=== PATIENT | female | born 1995 | race Caucasian/White ===

== ENCOUNTER → 2016-09-24 | Outpatient (CLI) | payer OTHER ==
[2016-09-27 17:32] LABS: IGA SERUM 300 mg/dL (81-463); TIS TRANS IGA 1 U/mL (<4)
== END | disposition home or self-care (01) ==
LOC: C.LAB1850 17:10
PROVIDERS: ATTEND Internal Medicine
DX: R10.9 Unspecified abdominal pain (principal)

== ENCOUNTER → 2016-12-13 | Outpatient (CLI) | payer OTHER | END | disposition home or self-care (01) | LOC: C.PAPS 15:24 | PROVIDERS: ATTEND Physician Assistant | DX: Z12.4 Encounter for screening for malignant neoplasm of cervix (principal) ==

== ENCOUNTER → 2016-12-18 | Outpatient (CLI) | payer OTHER ==
[2016-12-18 09:44] LABS: PREG INTERNAL NEGATIVE QC NEG CLEAR BACKGROUND; PREG INTERNAL POSITIVE QC POS CONTROL LINE
== END | disposition home or self-care (01) ==
LOC: C.LAB1850 08:03
PROVIDERS: ATTEND Physician Assistant
DX: Z32.00 Encounter for pregnancy test, result unknown (principal)

== ENCOUNTER → 2017-04-02 | Outpatient (CLI) | payer OTHER ==
[2017-04-02 17:36] LABS: BASO % 0.3 %; BASO ABS # 0.02 K/uL (0-0.2); COMPLETE YES; EOS % 0.9 %; HEMATOCRIT 39.8 % (37-47); IG% 0.1 %; LYMPH % 42.2 %; LYMPH ABS # 3.18 K/uL (1.2-3.4); MEAN CORPUSCULAR HGB CONC 32.2 g/dl (32-36); MEAN PLATELET VOLUME 9.7 fL (7.4-10.4); MONO % 5.3 %; NEUT % 51.2 %; PLATELET COUNT 277 K/uL (130-400); RED BLOOD COUNT 4.74 M/uL (4.2-5.4); WHITE BLOOD COUNT 7.53 K/uL (4.8-10.8)
== END | disposition home or self-care (01) ==
LOC: C.LAB1850 17:16
PROVIDERS: ATTEND Physician Assistant Medical
DX: N92.6 Irregular menstruation, unspecified (principal); R53.83 Other fatigue

== ENCOUNTER → 2017-05-10 | Outpatient (CLI) | payer OTHER ==
[2017-05-10 12:01] LABS: CHOLESTEROL/HDL RATIO 4.2
== END | disposition home or self-care (01) ==
LOC: C.LAB1850 09:36
PROVIDERS: ATTEND Physician Assistant
DX: Z00.00 Encounter for general adult medical examination without abnormal findings (principal)

== ENCOUNTER → 2017-08-22 | Outpatient (CLI) | payer OTHER | END | disposition home or self-care (01) | LOC: C.LAB1850 12:10 | PROVIDERS: ATTEND Obstetrics & Gynecology | DX: Z34.90 Encounter for supervision of normal pregnancy, unspecified, unspecified trimester (principal) ==

== ENCOUNTER → 2017-09-10 | Outpatient (CLI) | payer OTHER ==
[2017-09-10 13:10] LABS: BASO % 0.4 %; BASO ABS # 0.02 K/uL (0-0.2); EOS % 0.9 %; EOS ABS # 0.05 K/uL (0-0.5); HEMATOCRIT 39.5 % (37-47); HEMOGLOBIN 13.2 g/dL (12.0-16.0); IG# 0.01 K/uL (0.00-0.02); LYMPH % 37.1 %; LYMPH ABS # 2.06 K/uL (1.2-3.4); MEAN CELL VOLUME 83.9 fL (80-100); MEAN CORPUSCULAR HGB CONC 33.4 g/dl (32-36); MONO ABS # 0.39 K/uL (0.11-0.59); NEUT % 54.4 %; NEUT ABS # 3.02 K/uL (1.4-6.5); PLATELET COUNT 241 K/uL (130-400); WHITE BLOOD COUNT 5.55 K/uL (4.8-10.8)
[2017-09-10 13:29] LABS: BLOOD UREA NITROGEN 8 mg/dl (7-18); CARBON DIOXIDE 28 mmol/L (21-32); CREATININE 0.71 mg/dl (0.60-1.20); GLUCOSE 103 mg/dl (70-99); POTASSIUM 3.5 mmol/L (3.5-5.1); SODIUM 140 mmol/L (136-145)
== END | disposition home or self-care (01) ==
LOC: C.LABBC 09:43
PROVIDERS: ATTEND Physician Assistant
DX: R31.9 Hematuria, unspecified (principal)

== ENCOUNTER → 2017-09-10 | Outpatient (CLI) | payer OTHER ==
--- NOTE | 2017-09-10 10:12 | DIAGNOSTIC IMAGING REPORT ---
KUB CLINICAL HISTORY: Hematuria. FINDINGS: 2 AP supine abdominal radiographs are obtained. No prior studies are available for comparison at the time of dictation. There is a nonobstructed abdominal bowel gas pattern. No abnormal abdominal calcifications are identified. There is no radiographic evidence of mass effect or organomegaly. The bony structures appear intact. IMPRESSION: No acute abnormality is identified. Electronically signed by: Royce Benito M.D. 09/10/2017 10:11 AM Dictated Date/Time: 09/10/2017 10:10 AM
== END | disposition home or self-care (01) ==
LOC: C.RADBC 09:46
PROVIDERS: ATTEND Physician Assistant
DX: R31.9 Hematuria, unspecified (principal)

== ENCOUNTER → 2018-04-07 | Outpatient (CLI) | payer OTHER | END | disposition home or self-care (01) | LOC: C.LABBC 11:58 | PROVIDERS: ATTEND Family Medicine Adult Medicine | DX: R39.9 Unspecified symptoms and signs involving the genitourinary system (principal); N92.6 Irregular menstruation, unspecified ==

== ENCOUNTER 2024-07-24 14:54 | Inpatient (IN) ==
[2024-07-24 16:31] LABS: Hematocrit (blood only) 29.6 % (37.0-47.0); Hemoglobin 9.9 g/dl (12.0-16.0); Mean Corpuscular Hemoglobin 27.1 pg (25.0-34.0); Mean Corpuscular Hgb Conc 33.4 g/dL (32.0-36.0); Mean Corpuscular Volume 81.1 fL (80.0-100.0); Mean Platelet Volume 11.3 fL (9.4-12.4); Platelet Count 242 K/uL (130-400); RDW Coefficient of Variation 13.7 % (11.5-14.5); RDW Standard Deviation 40.1 fL (36.4-46.3); Red Blood Count 3.65 M/uL (4.20-5.40); White Blood Count 9.45 K/ul (4.8-10.8)
[2024-07-24] MEDS: ACETAMINOPHEN 500 MG TAB PO STA (16:34)
[2024-07-24] MEDS: METOCLOPRAMIDE HCL 10 MG TABLET PO ONE (16:34)
[2024-07-24 16:46] LABS: Albumin Level 3.2 gm/dl (3.4-5.0); BUN Creatinine Ratio 21.5 (10-20); Bilirubin,Total 0.3 mg/dl (0.2-1.0); Calcium 8.9 mg/dl (8.6-10.3); Creatinine Clr Calc Pharmacy 154.8 ml/min; Globulin 3.2 gm/dl (2.5-4.0); Potassium 4.3 mmol/L (3.5-5.1); Total Protein 6.4 gm/dl (6.0-8.3)
[2024-07-24] MEDS ORDERED: LIDOCAINE 1% LOCAL 20 ML VIAL INFIL PRN (18:08)
[2024-07-24] MEDS ORDERED: OXYTOCIN 30 UNITS/NSS 30 UNITS/500 ML BAG IV PRN (18:08)
--- NOTE | 2024-07-24 18:43 | History & Physical Report ---
Date of Service July 24, 2024 Assessment & Plan (1) Pre-eclampsia, severe: (2) Gestational diabetes mellitus (GDM) affecting , antepartum: Plan 29 yo G1 at 36 3/7 wga presented for evaluation and now dx w/ pre-eclampsia with severe features Normal to mild range BPs Fetus cat 1 PET w/ SF - discussed w/ pt and that given persistent CAMARGO despite adequate analgesic and was previously resolving w/ it, would dx w/ PET w/ SF. Would recommend induction given GA and they are in agreement. Discussed pcn given gbs pending, and magnesium. Discussed risks and benefits of betamethasone, she would like to proceed. Peds made aware as well. Vertex by US, will check cervix once moved over History of Present Illness Chief Complaint: CAMARGO, elevated BPs Primary Care Provider: Ander Begum, DO 29 yo G1 at 36 3/7 wga presented for eval due to CAMARGO in the setting of elevated BPs. Was seen yesterday for morris at which point mildly elevated BPs were noted but asymptomatic. Labs wre obtained which were normal however UP:C 1.0. diagnosed this afternoon w/ pre-eclampsia w/o SF after BP check today with persistent mild range BP. During visit, she noted return of CAMARGO so sent to L&D for further eval. On L&D, BPs remain mild range, labs were wnl. Has had HAs on and off and last few weeks but they would always resolve with tylenol. She was given tylenol and reglan on L&D however persisted. 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 hx: G1 cycles q35d denies hx stis Allergies Allergy/AdvReac Type Severity Reaction Status Date / Time No Known Drug Allergies Allergy Verified 07/24/24 13:22 Home Medications Medication Instructions Recorded Confirmed Type acetone (urine) test (Ketone Urine #50 ea 03/26/24 07/24/24 Rx Test strips) blood sugar diagnostic (OneTouch #150 ea 03/26/24 07/24/24 Rx Verio test strips) blood-glucose meter (OneTouch #1 ea 03/26/24 07/24/24 Rx Verio Reflect Meter) lancets 33 gauge (OneTouch Delica #150 ea 03/26/24 07/24/24 Rx Plus Lancet) vits no.124-ferrous fum 1 tab PO DAILY 07/24/24 07/24/24 History 27 mg iron-folic acid 800 mcg tablet ( Vitamin) Patient History Medical History (Updated 07/24/24 @ 18:54 by Marina Perdomo MD) Allergic contact dermatitis Chronic rhinitis Migraine Secondary amenorrhea TMJ (temporomandibular joint disorder) Surgical History (Updated 07/24/24 @ 16:40 by Meeta Peters RN) History of adenoidectomy 07/2023 History of tonsillectomy 2010 History of tooth extraction wisdom teeth 2010 Family History Father Stroke Dyslipidemia Hypertension Mother Diabetes Dyslipidemia Kidney stones Grandmother (Maternal) Diabetes Family/Other Uterine cancer Grandfather (Maternal) Lung cancer Grandmother (Paternal) Ovarian cancer Denies family history of Prostate cancer Myocardial infarction Breast cancer Colorectal cancer Social History (Updated 07/24/24 @ 16:48 by Meeta Peters RN) Smoking Status: Never smoker Second Hand Exposure: No; Do You Dip or Chew Tobacco: No; Hx Alcohol Use: No Hx Substance Use: No Preferred Language: Belgian Communication Ability: Effective Visual Impairment: No Limitations Hearing Ability: Normal Stummel Selector Required: No Beliefs That Will Affect Care: None marital status: marital status details: Sebas Concepcion (45) [phone] Current Living Situation: Spouse and Family Current Living Situation Comment: Step-son 11 years old current occupational status: employed 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 How many Children do You have: 0 Other Information That Helps Us Care for You: No Feels Safe at Home: Yes Safety Concerns: Feels Safe At This Time Childhood Exposure to Second-Hand Smoke: Yes caffeine: Yes Dental Care, Regularly: Yes Seatbelt Use: always Sunscreen Use: Yes Physical Exam Genitourinary: OB Exam Abdomen: + vertex (confirmed by us) and + estimated weight (6-7) OB Exam Monitor Tracing: + external FHT monitor used, + external uterine monitor used and + category I Results & Data Vital Signs (Past 12 Hours) Vital Signs Temp Pulse Resp BP 07/24/24 18:34 68 07/24/24 18:34 137/88 07/24/24 16:56 66 07/24/24 16:56 140/81 07/24/24 16:26 74 07/24/24 16:26 145/88 H 07/24/24 16:11 65 07/24/24 16:11 144/87 H 07/24/24 15:56 73 07/24/24 15:56 169/90 H 07/24/24 15:42 71 148/87 H 07/24/24 15:26 75 137/85 07/24/24 15:10 98.2 F 73 18 132/88 Laboratory Results OB Labs: Blood Type A Positive 01/02/24 Antibody Screen NEGATIVE 01/02/24 Hgb 10.8 g/dl (12.0-16.0) L 07/23/24 Hct 32.8 % (37.0-47.0) L 07/23/24 MCV 82.2 fL (80.0-100.0) 07/23/24 Plt Count 277 K/uL (130-400) 07/23/24 Rubella IgG Antibody Equivocal (Immune) L 01/02/24 RPR Nonreactive (Nonreactive) 01/02/24 Treponema pallidum Ab Negative (Negative) 07/09/24 Hep Bs Antigen NON-REACTIVE (NON-REACTIVE) 01/02/24 Hepatitis C Ab (EIA) NON-REACTIVE (NON-REACTIVE) 01/02/24 HIV (1&2) Ag & Ab Conf NON-REACTIVE (NON-REACTIVE) 01/02/24 Glucose 1 Hr 50 gm 175 mg/dl (70-130) H 03/03/24 Maternal Serum AFP 17.9 ng/mL 03/03/24 OB Optional Labs: Chlamydia trachomatis RNA Not Detected (NotDetected) 01/02/24 Neisseria gonorrhoeae RNA Not Detected (NotDetected) 01/02/24 Thyroid Stimulating Hormone (TSH) 1.739 uIu/ml (0.300-4.500) 02/12/23 Alpha Fetoprotein Triple Screen SEE NOTE 03/03/24 Labs Reviewed: Declines carrier screening--mln cfdna-low risk--mln Diagnostic Findings 07/09 EFW 2354g 39%, AC 60%, ant plac Coding Level of Care Code None Diagnoses Pre-eclampsia, severe O14.10 Gestational diabetes mellitus (GDM) affecting , antepartum O24.419
[2024-07-24] MEDS ORDERED: SODIUM CHLORIDE 0.9% 100 ML IV PRN (18:56)
[2024-07-24] MEDS ORDERED: SODIUM CHLORIDE 0.9% 50 ML IV PRN (18:56)
[2024-07-24] MEDS ORDERED: Nursing to Pharmacy Communication SCH (19:45)
[2024-07-24] MEDS: BETAMETH SOD PHOS/ACETATE IA 6 MG/ML IM SCH (19:50)
[2024-07-24] MEDS: MAGNESIUM SULFATE / WTR 40 GM/1,000 ML BAG IV SCH (20:01)
[2024-07-24] MEDS: PENICILLIN GK 6 MU in DEXTROSE 5% 250 ML IV STA (20:09)
[2024-07-24] MEDS: miSOPROStoL 25 MCG TAB PV ONE (20:17)
--- NOTE | 2024-07-24 20:23 | Labor Progress Brief Note ---
Date of Service July 24, 2024 Subjective resting Assessment & Plan (1) Pre-eclampsia, severe: (2) Gestational diabetes mellitus (GDM) affecting , antepartum: Plan 29 yo G1 at 36 3/7 wga presented for evaluation and now dx w/ pre-eclampsia with severe features Normal to mild range BPs Fetus cat 1 PET w/ SF - on mag, scruggs in place. s/p bmz x 1 Labor - 25mcg cytotec placed PV GBS unk, pcn started epidural prn Admission and Anticipated Discharge Date Admission Date: July 24, 2024 Physical Exam Genitourinary: OB Exam Monitor Tracing: + external FHT monitor used, + external uterine monitor used (rare) and + category I SVE c/l/h Results & Data Vital Signs (Past 12 Hours) Vital Signs Temp Pulse Resp BP Pulse Ox 07/24/24 20:15 99 07/24/24 20:15 84 07/24/24 20:10 100 07/24/24 20:10 87 07/24/24 20:05 99 07/24/24 20:05 77 07/24/24 20:04 72 07/24/24 20:04 142/95 H 07/24/24 18:34 20 07/24/24 18:34 98.2 F 20 07/24/24 18:34 68 07/24/24 18:34 137/88 07/24/24 16:56 66 07/24/24 16:56 140/81 07/24/24 16:26 74 07/24/24 16:26 145/88 H 07/24/24 16:11 65 07/24/24 16:11 144/87 H 07/24/24 15:56 73 07/24/24 15:56 169/90 H 07/24/24 15:42 71 148/87 H 07/24/24 15:26 75 137/85 07/24/24 15:10 98.2 F 73 18 132/88 Coding Level of Care Code None Diagnoses Pre-eclampsia, severe O14.10 Gestational diabetes mellitus (GDM) affecting , antepartum O24.419
[2024-07-24] MEDS: LACTATED RINGER'S 1,000 ML IV SCH (21:00)
[2024-07-25] MEDS: PENICILLIN GK 3 MU in DEXTROSE 5% 100 ML IV PRN (00:04)
--- NOTE | 2024-07-25 00:26 | Labor Progress Brief Note ---
Date of Service July 25, 2024 Subjective occ cramps Assessment & Plan (1) Pre-eclampsia, severe: (2) Gestational diabetes mellitus (GDM) affecting , antepartum: Plan 29 yo G1 at 36 3/7 wga presented for evaluation and now dx w/ pre-eclampsia with severe features Normal to mild range BPs Fetus cat 1 PET w/ SF - on mag, scruggs in place. s/p bmz x 1 Labor - s/p cytotec x 1, softer but still not able to insert scruggs so will place another cytotec GBS unk, pcn started epidural prn Admission and Anticipated Discharge Date Admission Date: July 24, 2024 Physical Exam Genitourinary: Manual OB Exam: + cervical dilation fingertip, + cervical effacement 50% and + station -2 OB Exam Monitor Tracing: + external FHT monitor used, + external uterine monitor used (rare) and + category I (125/mod/+accel/-decel) Results & Data Vital Signs (Past 12 Hours) Vital Signs Temp Pulse Resp BP Pulse Ox O2 Del Method 07/25/24 00:20 79 100 07/25/24 00:15 69 98 07/25/24 00:10 68 99 07/25/24 00:07 73 131/75 07/25/24 00:05 68 99 07/25/24 00:00 16 07/25/24 00:00 64 100 07/24/24 23:55 99 07/24/24 23:55 64 07/24/24 23:50 98 07/24/24 23:50 70 07/24/24 23:45 99 07/24/24 23:45 69 07/24/24 23:40 98 07/24/24 23:40 63 07/24/24 23:37 60 07/24/24 23:37 128/75 07/24/24 23:35 98 07/24/24 23:35 65 07/24/24 23:30 99 07/24/24 23:30 72 07/24/24 23:25 99 07/24/24 23:25 68 07/24/24 23:20 99 07/24/24 23:20 68 07/24/24 23:15 99 07/24/24 23:15 61 07/24/24 23:10 16 07/24/24 23:10 97.9 F 16 07/24/24 23:10 99 07/24/24 23:10 65 07/24/24 23:09 59 L 07/24/24 23:09 131/63 07/24/24 23:05 99 07/24/24 23:05 67 07/24/24 23:00 16 07/24/24 23:00 98 07/24/24 23:00 64 07/24/24 22:55 99 07/24/24 22:55 69 07/24/24 22:50 100 07/24/24 22:50 73 07/24/24 22:45 98 07/24/24 22:45 64 07/24/24 22:40 98 07/24/24 22:40 62 07/24/24 22:37 62 07/24/24 22:37 116/57 L 07/24/24 22:35 100 07/24/24 22:35 76 07/24/24 22:30 99 07/24/24 22:30 72 07/24/24 22:25 99 07/24/24 22:25 65 07/24/24 22:20 99 07/24/24 22:20 68 07/24/24 22:15 98 07/24/24 22:15 65 07/24/24 22:10 100 07/24/24 22:10 69 07/24/24 22:07 62 07/24/24 22:07 128/65 07/24/24 22:05 99 07/24/24 22:05 74 07/24/24 22:00 16 07/24/24 22:00 99 07/24/24 22:00 65 07/24/24 21:55 99 07/24/24 21:55 65 07/24/24 21:50 98 07/24/24 21:50 63 07/24/24 21:45 98 07/24/24 21:45 65 07/24/24 21:40 99 07/24/24 21:40 63 07/24/24 21:36 68 07/24/24 21:36 131/67 07/24/24 21:35 99 07/24/24 21:35 78 07/24/24 21:30 100 07/24/24 21:30 61 07/24/24 21:25 99 07/24/24 21:25 69 07/24/24 21:21 64 11/08/24 21:21 144/95 H 07/24/24 21:20 98 07/24/24 21:20 66 07/24/24 21:15 100 07/24/24 21:15 64 07/24/24 21:10 100 07/24/24 21:10 62 07/24/24 21:05 99 07/24/24 21:05 68 07/24/24 21:05 156/95 H 07/24/24 21:00 18 07/24/24 21:00 100 07/24/24 21:00 68 07/24/24 20:55 100 07/24/24 20:55 71 07/24/24 20:51 69 07/24/24 20:51 155/99 H 07/24/24 20:50 100 07/24/24 20:50 73 07/24/24 20:45 100 07/24/24 20:45 76 07/24/24 20:40 100 07/24/24 20:40 74 07/24/24 20:36 79 07/24/24 20:36 170/95 H 07/24/24 20:35 98 07/24/24 20:35 81 07/24/24 20:30 98 07/24/24 20:30 82 07/24/24 20:25 99 07/24/24 20:25 82 07/24/24 20:21 73 07/24/24 20:21 162/85 H 07/24/24 20:20 99 07/24/24 20:20 90 07/24/24 20:15 99 07/24/24 20:15 84 07/24/24 20:10 18 07/24/24 20:10 98.2 F 18 07/24/24 20:10 100 07/24/24 20:10 87 07/24/24 20:05 99 07/24/24 20:05 77 07/24/24 20:04 72 07/24/24 20:04 142/95 H 07/24/24 20:00 18 07/24/24 20:00 Room Air 07/24/24 18:34 20 07/24/24 18:34 98.2 F 20 07/24/24 18:34 68 07/24/24 18:34 137/88 07/24/24 16:56 66 07/24/24 16:56 140/81 07/24/24 16:26 74 07/24/24 16:26 145/88 H 07/24/24 16:11 65 07/24/24 16:11 144/87 H 07/24/24 15:56 73 07/24/24 15:56 169/90 H 07/24/24 15:42 71 148/87 H 07/24/24 15:26 75 137/85 07/24/24 15:10 98.2 F 73 18 132/88 Coding Level of Care Code None Diagnoses Pre-eclampsia, severe O14.10 Gestational diabetes mellitus (GDM) affecting , antepartum O24.419
[2024-07-25] MEDS: miSOPROStoL 25 MCG TAB PV ONE ×2 (00:46→07:26)
[2024-07-25] MEDS: ACETAMINOPHEN 500 MG TAB PO PRN (05:56)
[2024-07-25] MEDS: MAG SULFATE 4GM BOLUS FROM BAG IV ONE (07:11)
--- NOTE | 2024-07-25 08:12 | Labor Progress Brief Note ---
Date of Service July 25, 2024 Subjective occ cramps Assessment & Plan (1) Pre-eclampsia, severe: (2) Gestational diabetes mellitus (GDM) affecting , antepartum: Plan 29 yo G1 at 36 3/7 wga presented for evaluation and now dx w/ pre-eclampsia with severe features Normal to mild range BPs Fetus cat 1 PET w/ SF - on mag, scruggs in place. s/p bmz x 1 Labor - s/p cytotec x 2, softer but still not dilated so will place another cytotec GBS unk, pcn started epidural prn Admission and Anticipated Discharge Date Admission Date: July 24, 2024 Physical Exam Genitourinary: Manual OB Exam: + cervical dilation fingertip, + cervical effacement 50% and + station -2 OB Exam Monitor Tracing: + external FHT monitor used, + external uterine monitor used (irreg) and + category I (125/mod/+accel/-decel) Results & Data Vital Signs (Past 12 Hours) Vital Signs Temp Pulse Resp BP Pulse Ox 07/25/24 08:10 78 98 07/25/24 08:07 86 158/86 H 94 07/25/24 08:05 83 98 07/25/24 08:00 80 99 07/25/24 07:55 80 98 07/25/24 07:50 81 98 07/25/24 07:45 82 97 07/25/24 07:40 80 99 07/25/24 07:37 77 141/80 H 07/25/24 07:35 81 96 07/25/24 07:30 74 99 07/25/24 07:25 81 100 07/25/24 07:20 80 98 07/25/24 07:19 93 H 93 07/25/24 07:17 18 07/25/24 07:15 80 99 07/25/24 07:10 82 98 07/25/24 07:07 97.9 F 72 18 136/76 98 07/25/24 07:05 80 97 07/25/24 07:00 71 97 07/25/24 06:55 76 99 07/25/24 06:50 71 98 07/25/24 06:45 81 98 07/25/24 06:40 71 99 07/25/24 06:35 68 99 07/25/24 06:30 82 99 07/25/24 06:25 75 96 07/25/24 06:20 72 98 07/25/24 06:15 77 98 07/25/24 06:11 70 144/83 H 07/25/24 06:10 70 99 07/25/24 06:05 77 97 07/25/24 06:01 16 07/25/24 06:01 98.1 F 16 07/25/24 06:00 16 07/25/24 06:00 77 99 07/25/24 05:55 73 99 07/25/24 05:50 68 98 07/25/24 05:45 71 98 07/25/24 05:40 79 98 07/25/24 05:37 64 134/77 07/25/24 05:35 80 98 07/25/24 05:30 66 99 07/25/24 05:25 72 98 07/25/24 05:20 69 99 07/25/24 05:15 73 99 07/25/24 05:10 70 99 07/25/24 05:07 67 133/67 07/25/24 05:05 70 98 07/25/24 05:00 16 07/25/24 05:00 75 97 07/25/24 04:55 73 97 07/25/24 04:50 65 98 07/25/24 04:45 70 99 07/25/24 04:40 68 98 07/25/24 04:37 72 131/74 07/25/24 04:35 70 99 07/25/24 04:30 68 98 07/25/24 04:25 69 98 07/25/24 04:20 66 98 07/25/24 04:15 65 98 07/25/24 04:10 68 99 07/25/24 04:07 67 137/79 07/25/24 04:05 67 99 07/25/24 04:00 16 07/25/24 04:00 64 99 07/25/24 03:55 67 99 07/25/24 03:50 63 99 07/25/24 03:45 65 99 07/25/24 03:40 65 99 07/25/24 03:37 63 132/73 07/25/24 03:35 65 98 07/25/24 03:30 73 100 07/25/24 03:25 61 98 07/25/24 03:20 66 99 07/25/24 03:15 66 100 07/25/24 03:10 63 98 07/25/24 03:07 65 119/63 07/25/24 03:05 66 99 07/25/24 03:00 16 07/25/24 03:00 65 99 07/25/24 02:56 98.2 F 07/25/24 02:55 73 100 07/25/24 02:50 72 98 07/25/24 02:45 70 100 07/25/24 02:40 71 98 07/25/24 02:37 70 136/74 07/25/24 02:35 69 99 07/25/24 02:30 70 99 07/25/24 02:25 74 99 07/25/24 02:20 78 97 07/25/24 02:15 76 96 07/25/24 02:10 83 97 07/25/24 02:07 79 144/66 H 07/25/24 02:05 80 96 07/25/24 02:00 16 07/25/24 02:00 78 97 07/25/24 01:55 78 97 07/25/24 01:50 76 97 07/25/24 01:45 81 97 07/25/24 01:40 76 97 07/25/24 01:37 74 136/64 07/25/24 01:35 77 97 07/25/24 01:30 73 98 07/25/24 01:25 70 98 07/25/24 01:20 68 99 07/25/24 01:15 74 98 07/25/24 01:10 71 98 07/25/24 01:07 71 124/65 07/25/24 01:05 78 98 07/25/24 01:00 16 07/25/24 01:00 74 98 07/25/24 00:55 71 98 07/25/24 00:50 78 98 07/25/24 00:45 87 100 07/25/24 00:40 72 99 07/25/24 00:37 67 140/88 07/25/24 00:35 71 98 07/25/24 00:30 68 99 07/25/24 00:25 65 98 07/25/24 00:20 79 100 07/25/24 00:15 69 98 07/25/24 00:10 68 99 07/25/24 00:07 73 131/75 07/25/24 00:05 68 99 07/25/24 00:00 16 07/25/24 00:00 64 100 07/24/24 23:55 99 07/24/24 23:55 64 07/24/24 23:50 98 07/24/24 23:50 70 07/24/24 23:45 99 07/24/24 23:45 69 07/24/24 23:40 98 07/24/24 23:40 63 07/24/24 23:37 60 07/24/24 23:37 128/75 07/24/24 23:35 98 07/24/24 23:35 65 07/24/24 23:30 99 07/24/24 23:30 72 07/24/24 23:25 99 07/24/24 23:25 68 07/24/24 23:20 99 07/24/24 23:20 68 07/24/24 23:15 99 07/24/24 23:15 61 07/24/24 23:10 16 07/24/24 23:10 97.9 F 16 07/24/24 23:10 99 07/24/24 23:10 65 07/24/24 23:09 59 L 07/24/24 23:09 131/63 07/24/24 23:05 99 07/24/24 23:05 67 07/24/24 23:00 16 07/24/24 23:00 98 07/24/24 23:00 64 07/24/24 22:55 99 07/24/24 22:55 69 07/24/24 22:50 100 07/24/24 22:50 73 07/24/24 22:45 98 07/24/24 22:45 64 07/24/24 22:40 98 07/24/24 22:40 62 07/24/24 22:37 62 07/24/24 22:37 116/57 L 07/24/24 22:35 100 07/24/24 22:35 76 07/24/24 22:30 99 07/24/24 22:30 72 07/24/24 22:25 99 07/24/24 22:25 65 07/24/24 22:20 99 07/24/24 22:20 68 07/24/24 22:15 98 07/24/24 22:15 65 07/24/24 22:10 100 07/24/24 22:10 69 07/24/24 22:07 62 07/24/24 22:07 128/65 07/24/24 22:05 99 07/24/24 22:05 74 07/24/24 22:00 16 07/24/24 22:00 99 07/24/24 22:00 65 07/24/24 21:55 99 07/24/24 21:55 65 07/24/24 21:50 98 07/24/24 21:50 63 07/24/24 21:45 98 07/24/24 21:45 65 07/24/24 21:40 99 07/24/24 21:40 63 07/24/24 21:36 68 07/24/24 21:36 131/67 07/24/24 21:35 99 07/24/24 21:35 78 07/24/24 21:30 100 07/24/24 21:30 61 07/24/24 21:25 99 07/24/24 21:25 69 07/24/24 21:21 64 07/24/24 21:21 144/95 H 07/24/24 21:20 98 07/24/24 21:20 66 07/24/24 21:15 100 07/24/24 21:15 64 07/24/24 21:10 100 07/24/24 21:10 62 07/24/24 21:05 99 07/24/24 21:05 68 07/24/24 21:05 156/95 H 07/24/24 21:00 18 07/24/24 21:00 100 07/24/24 21:00 68 07/24/24 20:55 100 07/24/24 20:55 71 07/24/24 20:51 69 07/24/24 20:51 155/99 H 07/24/24 20:50 100 07/24/24 20:50 73 07/24/24 20:45 100 07/24/24 20:45 76 07/24/24 20:40 100 07/24/24 20:40 74 07/24/24 20:36 79 07/24/24 20:36 170/95 H 07/24/24 20:35 98 07/24/24 20:35 81 07/24/24 20:30 98 07/24/24 20:30 82 07/24/24 20:25 99 07/24/24 20:25 82 07/24/24 20:21 73 07/24/24 20:21 162/85 H 07/24/24 20:20 99 07/24/24 20:20 90 07/24/24 20:15 99 07/24/24 20:15 84 Coding Level of Care Code None Diagnoses Pre-eclampsia, severe O14.10 Gestational diabetes mellitus (GDM) affecting , antepartum O24.419
--- NOTE | 2024-07-25 12:05 | Labor Progress Brief Note ---
Date of Service July 25, 2024 Subjective some cramps. no gonzalez. no other concerns. Assessment & Plan (1) Pre-eclampsia, severe: (2) Gestational diabetes mellitus (GDM) affecting , antepartum: (3) 36 weeks gestation of : Plan no evidence of worsening disease. will start pitocin, scruggs placed. good urine output. Admission and Anticipated Discharge Date Admission Date: July 24, 2024 Physical Exam Constitutional: WD/WN, vitals as above Genitourinary: Manual OB Exam: + cervical dilation 1 cm, + cervical effacement 50% and + station -2 OB Exam Monitor Tracing: + external FHT monitor used, + external uterine monitor used (irreg), + category I and + normal FHT variability PROCEDURE: sse cx visualized, grasped on ant lip with ring forcep, scruggs through os and balloon inflated with 40cc sterile water. Spec removed, scruggs taped to leg. pt clay well. Results & Data Vital Signs (Past 12 Hours) Vital Signs Temp Pulse Resp BP Pulse Ox 07/25/24 12:00 86 99 07/25/24 11:55 107 H 100 07/25/24 11:50 94 H 100 07/25/24 11:45 82 100 07/25/24 11:40 102 H 100 07/25/24 11:39 90 155/83 H 07/25/24 11:35 70 99 07/25/24 11:30 70 100 07/25/24 11:25 86 100 07/25/24 11:20 72 100 07/25/24 11:15 76 100 07/25/24 11:10 76 100 07/25/24 11:07 70 132/70 07/25/24 11:05 75 100 07/25/24 11:00 72 100 07/25/24 10:55 77 100 07/25/24 10:50 83 96 07/25/24 10:48 78 144/71 H 90 07/25/24 10:45 100 07/25/24 10:45 83 07/25/24 10:45 83 157/89 H 07/25/24 10:40 88 99 07/25/24 10:38 83 170/87 H 07/25/24 10:36 16 07/25/24 10:35 82 18 98 07/25/24 10:30 80 97 07/25/24 10:25 82 96 11/09/24 10:20 79 97 07/25/24 10:15 82 98 07/25/24 10:10 82 100 07/25/24 10:07 81 156/85 H 07/25/24 10:05 81 97 07/25/24 10:00 88 99 07/25/24 09:55 81 96 07/25/24 09:50 79 97 07/25/24 09:45 77 98 07/25/24 09:40 75 97 07/25/24 09:37 80 128/79 07/25/24 09:35 77 97 07/25/24 09:30 77 97 07/25/24 09:25 75 98 07/25/24 09:20 80 99 07/25/24 09:15 18 07/25/24 09:15 75 98 07/25/24 09:12 78 92 07/25/24 09:10 80 97 07/25/24 09:08 75 139/83 07/25/24 09:05 84 98 07/25/24 09:00 80 98 07/25/24 08:56 84 94 07/25/24 08:55 82 98 07/25/24 08:50 83 99 07/25/24 08:45 84 97 07/25/24 08:40 89 98 07/25/24 08:37 93 H 147/94 H 07/25/24 08:35 96 H 97 07/25/24 08:30 18 07/25/24 08:30 86 98 07/25/24 08:27 83 93 07/25/24 08:25 86 98 07/25/24 08:20 79 98 07/25/24 08:15 74 99 07/25/24 08:10 78 98 07/25/24 08:07 86 158/86 H 94 07/25/24 08:05 83 98 07/25/24 08:00 80 99 07/25/24 07:55 80 98 07/25/24 07:50 81 98 07/25/24 07:45 82 97 07/25/24 07:40 80 99 07/25/24 07:37 77 141/80 H 07/25/24 07:35 81 96 07/25/24 07:30 74 99 07/25/24 07:25 81 100 07/25/24 07:20 80 98 07/25/24 07:19 93 H 93 07/25/24 07:17 18 07/25/24 07:15 80 99 07/25/24 07:10 82 98 07/25/24 07:07 97.9 F 72 18 136/76 98 07/25/24 07:05 80 97 07/25/24 07:00 71 97 07/25/24 06:55 76 99 07/25/24 06:50 71 98 07/25/24 06:45 81 98 07/25/24 06:40 71 99 07/25/24 06:35 68 99 07/25/24 06:30 82 99 07/25/24 06:25 75 96 07/25/24 06:20 72 98 07/25/24 06:15 77 98 07/25/24 06:11 70 144/83 H 07/25/24 06:10 70 99 07/25/24 06:05 77 97 07/25/24 06:01 16 07/25/24 06:01 98.1 F 16 07/25/24 06:00 16 07/25/24 06:00 77 99 07/25/24 05:55 73 99 07/25/24 05:50 68 98 07/25/24 05:45 71 98 07/25/24 05:40 79 98 07/25/24 05:37 64 134/77 07/25/24 05:35 80 98 07/25/24 05:30 66 99 07/25/24 05:25 72 98 07/25/24 05:20 69 99 07/25/24 05:15 73 99 07/25/24 05:10 70 99 07/25/24 05:07 67 133/67 07/25/24 05:05 70 98 07/25/24 05:00 16 07/25/24 05:00 75 97 07/25/24 04:55 73 97 07/25/24 04:50 65 98 07/25/24 04:45 70 99 07/25/24 04:40 68 98 07/25/24 04:37 72 131/74 07/25/24 04:35 70 99 07/25/24 04:30 68 98 07/25/24 04:25 69 98 07/25/24 04:20 66 98 07/25/24 04:15 65 98 07/25/24 04:10 68 99 07/25/24 04:07 67 137/79 07/25/24 04:05 67 99 07/25/24 04:00 16 07/25/24 04:00 64 99 07/25/24 03:55 67 99 07/25/24 03:50 63 99 07/25/24 03:45 65 99 07/25/24 03:40 65 99 07/25/24 03:37 63 132/73 07/25/24 03:35 65 98 07/25/24 03:30 73 100 07/25/24 03:25 61 98 07/25/24 03:20 66 99 07/25/24 03:15 66 100 07/25/24 03:10 63 98 07/25/24 03:07 65 119/63 07/25/24 03:05 66 99 07/25/24 03:00 16 07/25/24 03:00 65 99 07/25/24 02:56 98.2 F 07/25/24 02:55 73 100 07/25/24 02:50 72 98 07/25/24 02:45 70 100 07/25/24 02:40 71 98 07/25/24 02:37 70 136/74 07/25/24 02:35 69 99 07/25/24 02:30 70 99 07/25/24 02:25 74 99 07/25/24 02:20 78 97 07/25/24 02:15 76 96 07/25/24 02:10 83 97 07/25/24 02:07 79 144/66 H 07/25/24 02:05 80 96 07/25/24 02:00 16 07/25/24 02:00 78 97 07/25/24 01:55 78 97 07/25/24 01:50 76 97 07/25/24 01:45 81 97 07/25/24 01:40 76 97 07/25/24 01:37 74 136/64 07/25/24 01:35 77 97 07/25/24 01:30 73 98 07/25/24 01:25 70 98 07/25/24 01:20 68 99 07/25/24 01:15 74 98 07/25/24 01:10 71 98 07/25/24 01:07 71 124/65 07/25/24 01:05 78 98 07/25/24 01:00 16 07/25/24 01:00 74 98 07/25/24 00:55 71 98 07/25/24 00:50 78 98 07/25/24 00:45 87 100 07/25/24 00:40 72 99 07/25/24 00:37 67 140/88 07/25/24 00:35 71 98 07/25/24 00:30 68 99 07/25/24 00:25 65 98 07/25/24 00:20 79 100 07/25/24 00:15 69 98 07/25/24 00:10 68 99 07/25/24 00:07 73 131/75 07/25/24 00:05 68 99 Coding Level of Care Code None Diagnoses Pre-eclampsia, severe O14.10 Gestational diabetes mellitus (GDM) affecting , antepartum O24.419 36 weeks gestation of Z3A.36
[2024-07-25] MEDS: OXYTOCIN 30 UNITS/NSS 30 UNITS/500 ML BAG IV PRN (12:13)
[2024-07-25] MEDS: ONDANSETRON INJ 2 MG/ML 2 ML VIAL IV PRN (13:36)
[2024-07-25] MEDS ORDERED: ROPIVACAINE 0.5% PF 5 MG/ML 20 ML VIAL EPI PRN (14:09)
[2024-07-25] MEDS ORDERED: BUPIVACAINE 0.25% PF 30 ML VIAL EPI PRN (14:09)
[2024-07-25] MEDS ORDERED: diphenhydrAMINE 50 MG/ML VIAL IV PRN (14:09)
[2024-07-25] MEDS ORDERED: ePHEDrine sulfate 50 MG/ML AMP IV PRN (14:09)
[2024-07-25] MEDS ORDERED: LIDOCAINE 2% MPF LOCAL 5 ML VIAL EPI PRN (14:09)
[2024-07-25] MEDS ORDERED: NALBUPHINE HCL INJ 10 MG/ML AMP IV PRN (14:09)
[2024-07-25] MEDS ORDERED: NALOXONE HCL 0.4 MG/1 ML VIAL/CARP IV PRN (14:09)
[2024-07-25] MEDS ORDERED: NALOXONE HCL 1 MG in SODIUM CHLORIDE 0.9% 1,000 ML IV PRN (14:09)
[2024-07-25] MEDS ORDERED: fentaNYL citrate PF 100 MCG/2 ML VIAL EPI PRN (14:09)
[2024-07-25] MEDS ORDERED: SODIUM CHLORIDE 0.9% PF INJ 10 ML VIAL EPI PRN (14:09)
--- NOTE | 2024-07-25 14:11 | Anesthesiology Consultation ---
Date of Service July 25, 2024 Assessment & Plan Chart Review Chart Review: Acceptable Risk for Labor Epidural Consults Requested medical & cardiac Pulmonary ASA ASA3 Proposed Anesthesia Anesthesia Type: Labor Epidural History Height/Weight Height: 5 ft 4 in Weight: 113.398 kg Allergies Allergy/AdvReac Type Severity Reaction Status Date / Time No Known Drug Allergies Allergy Verified 07/24/24 13:22 Medications Home Medications Medication Instructions Recorded Confirmed Last Taken acetone (urine) test (Ketone Urine #50 ea 03/26/24 07/24/24 Unknown Test strips) blood sugar diagnostic (OneTouch #150 ea 03/26/24 07/24/24 Unknown Verio test strips) blood-glucose meter (OneTouch #1 ea 03/26/24 07/24/24 Unknown Verio Reflect Meter) lancets 33 gauge (OneTouch Delica #150 ea 03/26/24 07/24/24 Unknown Plus Lancet) vits no.124-ferrous fum 1 tab PO DAILY 07/24/24 07/24/24 Unknown 27 mg iron-folic acid 800 mcg tablet ( Vitamin) Active Medications Generic Name Dose Route Start Last Admin Trade Name Freq PRN Reason Stop Dose Admin Acetaminophen 1,000 mg 07/25/24 05:43 07/25/24 05:56 Acetaminophen 500 Mg Tab PO 08/24/24 05:42 1,000 mg Q8H PRN Administration Pain or Fever Penicillin G Potassium 3 mu/ 106 mls @ 100 mls/hr 07/24/24 21:08 07/25/24 05:15 Dextrose IV 08/03/24 21:07 Infused Q4H PRN Infusion GBS(+) Until Delivery Magnesium Sulfate 40 gm in 1,000 mls @ 50 mls/hr 07/24/24 18:15 07/25/24 13:39 Magnesium Sulfate / Wtr IV 08/23/24 18:14 50 mls/hr .Q20H OLGA Administration Oxytocin 30 units in 500 mls @ 5 mls/hr 07/24/24 18:08 07/25/24 13:15 Pitocin 30 Units/Nss IV 07/26/24 18:07 0.3 units/hr .Q24H PRN 5 mls/hr Labor Induction/Augmentation Titration Protocol 0.3 UNITS/HR Lactated Ringer's 1,000 mls @ 75 mls/hr 07/24/24 21:00 07/25/24 10:46 Lr IV 07/25/24 20:59 75 mls/hr .[id number] OLGA Administration Ondansetron HCl 4 mg 07/25/24 13:27 07/25/24 13:36 Ondansetron Inj 2 Mg/Ml 2 Ml Vial IV 08/24/24 13:26 4 mg Q6H PRN Administration Nausea And Vomiting Past Medical History Medical History (Updated 07/25/24 @ 12:04 by Patti Donis MD, FACOG) Allergic contact dermatitis Chronic rhinitis Migraine Secondary amenorrhea TMJ (temporomandibular joint disorder) Past Family History Family History Father Stroke Dyslipidemia Hypertension Mother Diabetes Dyslipidemia Kidney stones Grandmother (Maternal) Diabetes Family/Other Uterine cancer Grandfather (Maternal) Lung cancer Grandmother (Paternal) Ovarian cancer Denies family history of Prostate cancer Myocardial infarction Breast cancer Colorectal cancer Past Surgical History Surgical History (Updated 07/24/24 @ 16:40 by Meeta Peters RN) History of adenoidectomy 07/2023 History of tonsillectomy 2011 History of tooth extraction wisdom teeth 2010 Social History Smoking Status: Never smoker Do You Dip or Chew Tobacco: No Hx Alcohol Use: No Hx Substance Use: No Physical Exam Vital Signs Last Vital Signs Temp 36.7 C 07/25/24 11:07 Pulse 76 07/25/24 14:07 Resp 18 07/25/24 12:15 BP 136/76 07/25/24 14:07 Pulse Ox 91 07/25/24 14:07 O2 Del Method Room Air 07/24/24 20:00 Testing Laboratory Results 07/24/24 16:16 07/24/24 16:16 Blood Type A Positive 07/24/24 16:16 Antibody Screen NEGATIVE 07/24/24 16:16 07/25/24 09:21 POC Glucose 156 H
[2024-07-25] MEDS: fentANYL 2 MCG/ML BUPIVacaine 0.125%-NSS 100ML BAG ONE (14:40)
[2024-07-25] MEDS: LIDOCAINE 2%/EPINEPHRINE 1:200,000 20 ML PF ONE (14:48)
--- NOTE | 2024-07-25 15:23 | Labor Progress Brief Note ---
Date of Service July 25, 2024 Subjective comfortable with epidural Assessment & Plan (1) 36 weeks gestation of : (2) Pre-eclampsia, severe: (3) Gestational diabetes mellitus (GDM) affecting , antepartum: Plan will see how arom helps pattern, needs to increase pit. fhts categ 1. Admission and Anticipated Discharge Date Admission Date: July 24, 2024 Physical Exam Constitutional: WD/WN, vitals as above Genitourinary: Manual OB Exam: + cervical dilation 3 cm, + cervical effacement (75%), + station -2 and + amniotic fluid (arom) clear OB Exam Monitor Tracing: + external FHT monitor used, + external uterine monitor used (irreg), + category I and + normal FHT variability Results & Data Vital Signs (Past 12 Hours) Vital Signs Temp Pulse Resp BP Pulse Ox 07/25/24 15:20 76 100 07/25/24 15:16 97 H 119/59 L 07/25/24 15:15 95 H 100 07/25/24 15:12 83 117/57 L 07/25/24 15:10 83 100 07/25/24 15:07 86 109/59 L 07/25/24 15:05 91 H 98 07/25/24 15:01 103 H 123/59 L 07/25/24 15:00 108 H 100 07/25/24 14:59 88 120/59 L 07/25/24 14:57 84 117/58 L 07/25/24 14:55 99 07/25/24 14:55 87 07/25/24 14:55 88 118/56 L 07/25/24 14:53 86 121/62 07/25/24 14:51 100 H 121/58 L 07/25/24 14:50 96 H 99 07/25/24 14:49 93 H 120/59 L 07/25/24 14:47 88 122/55 L 07/25/24 14:45 87 124/60 100 07/25/24 14:43 93 H 130/60 07/25/24 14:41 85 127/59 L 07/25/24 14:40 87 99 07/25/24 14:39 83 129/59 L 07/25/24 14:37 81 125/58 L 07/25/24 14:35 97 07/25/24 14:35 86 07/25/24 14:35 83 133/64 07/25/24 14:33 82 141/64 H 07/25/24 14:31 88 162/87 H 07/25/24 14:30 99 07/25/24 14:30 89 07/25/24 14:30 81 158/86 H 07/25/24 14:29 82 176/97 H 07/25/24 14:25 81 98 07/25/24 14:20 82 98 07/25/24 14:15 22 07/25/24 14:15 99 07/25/24 14:15 89 07/25/24 14:15 89 86 L 07/25/24 14:10 85 100 07/25/24 14:07 76 136/76 91 07/25/24 14:05 88 100 07/25/24 14:00 80 94 07/25/24 13:58 78 93 07/25/24 13:55 78 97 07/25/24 13:50 78 91 07/25/24 13:48 74 92 07/25/24 13:45 73 100 07/25/24 13:40 78 92 07/25/24 13:37 77 131/69 07/25/24 13:35 76 100 07/25/24 13:30 18 07/25/24 13:30 79 99 07/25/24 13:25 80 100 07/25/24 13:20 76 100 07/25/24 13:15 83 100 07/25/24 13:10 83 100 07/25/24 13:08 77 93 07/25/24 13:07 76 129/68 07/25/24 13:05 77 99 07/25/24 13:00 77 97 07/25/24 12:55 79 100 07/25/24 12:50 75 99 07/25/24 12:45 76 97 07/25/24 12:40 77 99 07/25/24 12:37 75 143/77 H 07/25/24 12:35 81 99 07/25/24 12:30 81 99 07/25/24 12:25 79 97 07/25/24 12:20 83 98 07/25/24 12:15 18 07/25/24 12:15 88 99 07/25/24 12:10 84 99 07/25/24 12:07 83 140/76 07/25/24 12:05 88 99 07/25/24 12:00 86 99 07/25/24 11:55 107 H 100 07/25/24 11:50 94 H 100 07/25/24 11:45 82 100 07/25/24 11:40 102 H 100 07/25/24 11:39 90 155/83 H 07/25/24 11:35 70 99 07/25/24 11:30 70 100 07/25/24 11:25 86 100 07/25/24 11:20 72 100 07/25/24 11:15 76 100 07/25/24 11:10 76 100 07/25/24 11:07 18 07/25/24 11:07 98.1 F 70 18 132/70 100 07/25/24 11:05 75 100 07/25/24 11:00 72 100 07/25/24 10:55 77 100 07/25/24 10:50 83 96 07/25/24 10:48 78 144/71 H 90 07/25/24 10:45 100 07/25/24 10:45 83 07/25/24 10:45 83 157/89 H 07/25/24 10:40 88 99 07/25/24 10:38 83 170/87 H 07/25/24 10:36 16 07/25/24 10:35 82 18 98 07/25/24 10:30 80 97 07/25/24 10:25 82 96 07/25/24 10:20 79 97 07/25/24 10:15 82 98 07/25/24 10:10 82 100 07/25/24 10:07 81 156/85 H 07/25/24 10:05 81 97 07/25/24 10:00 88 99 07/25/24 09:55 81 96 07/25/24 09:50 79 97 07/25/24 09:45 77 98 07/25/24 09:40 75 97 07/25/24 09:37 80 128/79 07/25/24 09:35 77 97 07/25/24 09:30 77 97 07/25/24 09:25 75 98 07/25/24 09:20 80 99 07/25/24 09:15 18 07/25/24 09:15 75 98 07/25/24 09:12 78 92 07/25/24 09:10 80 97 07/25/24 09:08 75 139/83 07/25/24 09:05 84 98 07/25/24 09:00 80 98 07/25/24 08:56 84 94 07/25/24 08:55 82 98 07/25/24 08:50 83 99 07/25/24 08:45 84 97 07/25/24 08:40 89 98 07/25/24 08:37 93 H 147/94 H 07/25/24 08:35 96 H 97 07/25/24 08:30 18 07/25/24 08:30 86 98 07/25/24 08:27 83 93 07/25/24 08:25 86 98 07/25/24 08:20 79 98 07/25/24 08:15 74 99 07/25/24 08:10 78 98 07/25/24 08:07 86 158/86 H 94 07/25/24 08:05 83 98 07/25/24 08:00 80 99 07/25/24 07:55 80 98 07/25/24 07:50 81 98 07/25/24 07:45 82 97 07/25/24 07:40 80 99 07/25/24 07:37 77 141/80 H 07/25/24 07:35 81 96 07/25/24 07:30 74 99 07/25/24 07:25 81 100 07/25/24 07:20 80 98 07/25/24 07:19 93 H 93 07/25/24 07:17 18 07/25/24 07:15 80 99 07/25/24 07:10 82 98 07/25/24 07:07 97.9 F 72 18 136/76 98 07/25/24 07:05 80 97 07/25/24 07:00 71 97 07/25/24 06:55 76 99 07/25/24 06:50 71 98 07/25/24 06:45 81 98 07/25/24 06:40 71 99 07/25/24 06:35 68 99 07/25/24 06:30 82 99 07/25/24 06:25 75 96 07/25/24 06:20 72 98 07/25/24 06:15 77 98 07/25/24 06:11 70 144/83 H 07/25/24 06:10 70 99 07/25/24 06:05 77 97 07/25/24 06:01 16 07/25/24 06:01 98.1 F 16 07/25/24 06:00 16 07/25/24 06:00 77 99 07/25/24 05:55 73 99 07/25/24 05:50 68 98 07/25/24 05:45 71 98 07/25/24 05:40 79 98 07/25/24 05:37 64 134/77 07/25/24 05:35 80 98 07/25/24 05:30 66 99 07/25/24 05:25 72 98 07/25/24 05:20 69 99 07/25/24 05:15 73 99 07/25/24 05:10 70 99 07/25/24 05:07 67 133/67 07/25/24 05:05 70 98 07/25/24 05:00 16 07/25/24 05:00 75 97 07/25/24 04:55 73 97 07/25/24 04:50 65 98 07/25/24 04:45 70 99 07/25/24 04:40 68 98 07/25/24 04:37 72 131/74 07/25/24 04:35 70 99 07/25/24 04:30 68 98 07/25/24 04:25 69 98 07/25/24 04:20 66 98 07/25/24 04:15 65 98 07/25/24 04:10 68 99 07/25/24 04:07 67 137/79 07/25/24 04:05 67 99 07/25/24 04:00 16 07/25/24 04:00 64 99 07/25/24 03:55 67 99 07/25/24 03:50 63 99 07/25/24 03:45 65 99 07/25/24 03:40 65 99 07/25/24 03:37 63 132/73 07/25/24 03:35 65 98 07/25/24 03:30 73 100 07/25/24 03:25 61 98 Coding Level of Care Code None Diagnoses 36 weeks gestation of Z3A.36 Pre-eclampsia, severe O14.10 Gestational diabetes mellitus (GDM) affecting , antepartum O24.419
[2024-07-25 16:13] VITALS: RESP 18
--- NOTE | 2024-07-25 17:56 | Communication Note ---
Date of Service: July 25, 2024 strip review fhts categ 1. toco irregular 17 pit. mag at 2gm/hr. pt has been asymptomatic entire time if have been here. will dec mag to 1gm/hr, pit max 30 and see if can achieve better labor pattern. per nurse reflexes are not only not brisk but have not been easy to obtain. her preeclampsia with severe features has been moreso due to sx which are non existent currently so i am hoping to achieve better labor pattern in doing so, would have to readdress this as plan should status change. also urine output was less this past 4hr and so will monitor that as well.
[2024-07-25] MEDS ORDERED: CALCIUM CARBONATE 500 MG CHEWABLE TAB PO PRN (18:03)
[2024-07-25] MEDS: fentaNYL citrate PF 100 MCG/2 ML VIAL ONE (18:14)
[2024-07-25] MEDS: ePHEDrine sulfate 50 MG/ML AMP ONE (18:14)
[2024-07-25] MEDS: BUPIVACAINE 0.25% PF 30 ML VIAL ONE (18:14)
[2024-07-25] MEDS: SODIUM CHLORIDE 0.9% PF INJ 10 ML VIAL ONE (18:14)
[2024-07-25] MEDS: fentaNYL citrate PF 100 MCG/2 ML VIAL EPI STA (18:14)
[2024-07-25] MEDS: BUPIVACAINE 0.25% PF 30 ML VIAL EPI STA (18:14)
[2024-07-25] MEDS ORDERED: BETAMETH SOD PHOS/ACETATE IA 6 MG/ML IM SCH (18:15)
[2024-07-25] MEDS: LIDOCAINE 2%/EPINEPHRINE 1:200,000 20 ML PF EPI STA (18:15)
[2024-07-25] MEDS: SODIUM CHLORIDE 0.9% PF INJ 10 ML VIAL EPI STA (18:15)
[2024-07-25] MEDS: BETAMETH SOD PHOS/ACETATE IA 6 MG/ML IM ONE (19:53)
--- NOTE | 2024-07-25 20:32 | Labor Progress Brief Note ---
Date of Service July 25, 2024 Subjective pt comfortable, some occas cramps in lower pelvis but no gonzalez or visual change. Assessment & Plan (1) 36 weeks gestation of : (2) Pre-eclampsia, severe: (3) Gestational diabetes mellitus (GDM) affecting , antepartum: Plan thus far has not achieved any type of labor pattern. mag was decreased to 1gm/hr given no sx. bps normal. urine ouput noted. discussed increasing pit to 30, then halve and try to reclimb to see if can achieve a labor pattern. fhts categ 1. pt agreeable. gbs had come back neg, so pcn was stopped. we are also watching bsgs, last 138, plan to recheck 2hr. Admission and Anticipated Discharge Date Admission Date: July 24, 2024 Physical Exam Constitutional: WD/WN, vitals as above Genitourinary: OB Exam Monitor Tracing: + external FHT monitor used, + external uterine monitor used (irregular coupling pit at 27), + category I and + normal FHT variability Results & Data Vital Signs (Past 12 Hours) Vital Signs Temp Pulse Resp BP Pulse Ox 07/25/24 20:25 76 98 07/25/24 20:20 78 99 07/25/24 20:15 71 98 07/25/24 20:14 71 126/62 07/25/24 20:10 69 99 07/25/24 20:05 76 99 07/25/24 20:00 83 99 07/25/24 19:59 93 H 146/81 H 07/25/24 19:55 77 99 07/25/24 19:50 74 99 07/25/24 19:45 80 99 07/25/24 19:44 78 140/81 07/25/24 19:40 75 98 07/25/24 19:35 79 99 07/25/24 19:30 80 99 07/25/24 19:29 80 138/81 07/25/24 19:25 78 99 07/25/24 19:20 82 100 07/25/24 19:15 87 140/83 99 07/25/24 19:10 83 99 07/25/24 19:05 79 99 07/25/24 19:00 77 99 07/25/24 18:59 77 144/75 H 07/25/24 18:55 82 99 07/25/24 18:50 79 98 07/25/24 18:45 73 99 07/25/24 18:44 76 144/79 H 07/25/24 18:40 73 100 07/25/24 18:35 73 100 07/25/24 18:30 76 100 07/25/24 18:29 80 139/78 07/25/24 18:25 77 100 07/25/24 18:20 67 98 07/25/24 18:15 98 07/25/24 18:15 71 07/25/24 18:15 68 134/72 07/25/24 18:10 18 07/25/24 18:10 66 99 07/25/24 18:05 75 99 07/25/24 18:00 71 100 07/25/24 17:59 71 137/76 07/25/24 17:55 73 99 07/25/24 17:50 70 100 07/25/24 17:45 80 100 07/25/24 17:44 71 132/75 07/25/24 17:40 69 99 07/25/24 17:35 73 100 07/25/24 17:30 18 07/25/24 17:30 74 100 07/25/24 17:29 72 128/72 07/25/24 17:25 72 100 07/25/24 17:20 77 98 07/25/24 17:15 72 99 07/25/24 17:14 69 124/76 07/25/24 17:10 78 99 07/25/24 17:05 75 99 07/25/24 17:00 75 99 07/25/24 16:59 67 124/61 07/25/24 16:55 74 100 07/25/24 16:50 71 100 07/25/24 16:45 99 07/25/24 16:45 71 07/25/24 16:45 77 128/63 07/25/24 16:40 70 98 07/25/24 16:35 68 99 07/25/24 16:30 67 99 07/25/24 16:29 18 07/25/24 16:29 65 124/61 07/25/24 16:25 78 100 07/25/24 16:20 74 100 07/25/24 16:15 81 99 07/25/24 16:14 71 121/60 07/25/24 16:10 73 100 07/25/24 16:05 72 100 07/25/24 16:00 82 99 07/25/24 15:58 77 119/58 L 07/25/24 15:55 77 100 07/25/24 15:51 76 113/58 L 07/25/24 15:50 78 100 07/25/24 15:47 78 116/59 L 07/25/24 15:45 83 100 07/25/24 15:43 76 119/59 L 07/25/24 15:40 18 07/25/24 15:40 83 100 07/25/24 15:37 74 118/57 L 07/25/24 15:35 77 100 07/25/24 15:30 80 98 07/25/24 15:27 81 117/57 L 07/25/24 15:25 82 100 07/25/24 15:22 86 125/63 07/25/24 15:20 76 100 07/25/24 15:16 97 H 119/59 L 07/25/24 15:15 95 H 100 07/25/24 15:12 83 117/57 L 07/25/24 15:10 83 100 07/25/24 15:07 86 109/59 L 07/25/24 15:05 91 H 98 07/25/24 15:01 103 H 123/59 L 07/25/24 15:00 108 H 100 07/25/24 14:59 88 120/59 L 07/25/24 14:57 84 117/58 L 07/25/24 14:55 99 07/25/24 14:55 87 07/25/24 14:55 88 118/56 L 07/25/24 14:53 86 121/62 07/25/24 14:51 100 H 121/58 L 07/25/24 14:50 96 H 99 07/25/24 14:49 93 H 120/59 L 07/25/24 14:47 88 122/55 L 07/25/24 14:45 87 124/60 100 07/25/24 14:43 93 H 130/60 07/25/24 14:41 85 127/59 L 07/25/24 14:40 87 99 07/25/24 14:39 83 129/59 L 07/25/24 14:37 81 125/58 L 07/25/24 14:35 97 07/25/24 14:35 86 07/25/24 14:35 83 133/64 07/25/24 14:33 82 141/64 H 07/25/24 14:31 88 162/87 H 07/25/24 14:30 99 07/25/24 14:30 89 07/25/24 14:30 81 158/86 H 07/25/24 14:29 82 176/97 H 07/25/24 14:25 81 98 07/25/24 14:20 82 98 07/25/24 14:15 22 07/25/24 14:15 99 07/25/24 14:15 89 07/25/24 14:15 89 86 L 07/25/24 14:10 85 100 07/25/24 14:07 76 136/76 91 07/25/24 14:05 88 100 07/25/24 14:00 80 94 07/25/24 13:58 78 93 07/25/24 13:55 78 97 07/25/24 13:50 78 91 07/25/24 13:48 74 92 07/25/24 13:45 73 100 07/25/24 13:40 78 92 07/25/24 13:37 77 131/69 07/25/24 13:35 76 100 07/25/24 13:30 18 07/25/24 13:30 79 99 07/25/24 13:25 80 100 07/25/24 13:20 76 100 07/25/24 13:15 83 100 07/25/24 13:10 83 100 07/25/24 13:08 77 93 07/25/24 13:07 76 129/68 07/25/24 13:05 77 99 07/25/24 13:00 77 97 07/25/24 12:55 79 100 07/25/24 12:50 75 99 07/25/24 12:45 76 97 07/25/24 12:40 77 99 07/25/24 12:37 75 143/77 H 07/25/24 12:35 81 99 07/25/24 12:30 81 99 07/25/24 12:25 79 97 07/25/24 12:20 83 98 07/25/24 12:15 18 07/25/24 12:15 88 99 07/25/24 12:10 84 99 07/25/24 12:07 83 140/76 07/25/24 12:05 88 99 07/25/24 12:00 86 99 07/25/24 11:55 107 H 100 07/25/24 11:50 94 H 100 07/25/24 11:45 82 100 07/25/24 11:40 102 H 100 07/25/24 11:39 90 155/83 H 07/25/24 11:35 70 99 07/25/24 11:30 70 100 07/25/24 11:25 86 100 07/25/24 11:20 72 100 07/25/24 11:15 76 100 07/25/24 11:10 76 100 07/25/24 11:07 18 07/25/24 11:07 98.1 F 70 18 132/70 100 07/25/24 11:05 75 100 07/25/24 11:00 72 100 07/25/24 10:55 77 100 07/25/24 10:50 83 96 07/25/24 10:48 78 144/71 H 90 07/25/24 10:45 100 07/25/24 10:45 83 07/25/24 10:45 83 157/89 H 07/25/24 10:40 88 99 07/25/24 10:38 83 170/87 H 07/25/24 10:36 16 07/25/24 10:35 82 18 98 07/25/24 10:30 80 97 07/25/24 10:25 82 96 07/25/24 10:20 79 97 07/25/24 10:15 82 98 07/25/24 10:10 82 100 07/25/24 10:07 81 156/85 H 07/25/24 10:05 81 97 07/25/24 10:00 88 99 07/25/24 09:55 81 96 07/25/24 09:50 79 97 07/25/24 09:45 77 98 07/25/24 09:40 75 97 07/25/24 09:37 80 128/79 07/25/24 09:35 77 97 07/25/24 09:30 77 97 07/25/24 09:25 75 98 07/25/24 09:20 80 99 07/25/24 09:15 18 07/25/24 09:15 75 98 07/25/24 09:12 78 92 11/09/24 09:10 80 97 07/25/24 09:08 75 139/83 07/25/24 09:05 84 98 07/25/24 09:00 80 98 07/25/24 08:56 84 94 07/25/24 08:55 82 98 07/25/24 08:50 83 99 07/25/24 08:45 84 97 07/25/24 08:40 89 98 07/25/24 08:37 93 H 147/94 H 07/25/24 08:35 96 H 97 07/25/24 08:30 18 07/25/24 08:30 86 98 Coding Level of Care Code None Diagnoses 36 weeks gestation of Z3A.36 Pre-eclampsia, severe O14.10 Gestational diabetes mellitus (GDM) affecting , antepartum O24.419
[2024-07-25] MEDS: LACTATED RINGER'S 1,000 ML IV SCH (22:10)
[2024-07-25] MEDS: fentANYL 2 MCG/ML BUPIVacaine 0.125%-NSS 100ML BAG EPI PRN (22:26)
--- NOTE | 2024-07-26 02:11 | Labor Progress Brief Note ---
Date of Service July 26, 2024 Subjective pt comfortable no gonzalez, visual change. Assessment & Plan (1) 36 weeks gestation of : (2) Pre-eclampsia, severe: (3) Gestational diabetes mellitus (GDM) affecting , antepartum: Plan pt now with pitocin infusing at 30, no labor pattern noted. she has had pitocin halved and reincreased. Fhts categ 1. no cx change noted and some molding. she is given option to cont with pitocin, vs. halve and re-climb vs. proceed with c/s. indication for latter will be failure to induce. she elects proceeding with c/s now, risks, benefits, alt reviewed, consent reviewed and signed. anesth notified. nursery notified by nursing. Admission and Anticipated Discharge Date Admission Date: July 24, 2024 Physical Exam Constitutional: WD/WN, vitals as above Genitourinary: Manual OB Exam: + cervical dilation 3 cm, + cervical effacement 80% and + station (molding) -2 OB Exam Monitor Tracing: + external FHT monitor used, + external uterine monitor used (irreg, pit at 30), + category I and + normal FHT variability Results & Data Vital Signs (Past 12 Hours) Vital Signs Temp Pulse Resp BP Pulse Ox 07/26/24 02:00 83 98 07/26/24 01:59 92 H 148/75 H 07/26/24 01:55 84 97 07/26/24 01:50 82 94 07/26/24 01:45 80 94 07/26/24 01:44 78 139/66 07/26/24 01:40 78 94 07/26/24 01:35 76 95 07/26/24 01:30 79 94 07/26/24 01:29 77 145/67 H 07/26/24 01:25 81 94 07/26/24 01:20 85 95 07/26/24 01:15 18 07/26/24 01:15 98.2 F 81 93 07/26/24 01:14 79 135/65 07/26/24 01:10 78 93 07/26/24 01:05 79 93 07/26/24 01:00 77 93 07/26/24 00:59 75 138/66 07/26/24 00:55 75 95 07/26/24 00:50 76 94 07/26/24 00:45 77 94 07/26/24 00:44 75 142/68 H 07/26/24 00:40 78 94 07/26/24 00:35 72 96 07/26/24 00:30 76 96 07/26/24 00:29 72 136/70 07/26/24 00:25 78 97 07/26/24 00:20 73 97 07/26/24 00:15 18 07/26/24 00:15 83 96 07/26/24 00:14 73 123/57 L 07/26/24 00:10 81 96 07/26/24 00:05 83 92 07/26/24 00:00 78 94 07/25/24 23:59 80 140/65 07/25/24 23:55 83 94 07/25/24 23:50 77 94 07/25/24 23:45 78 94 07/25/24 23:44 79 131/62 07/25/24 23:40 79 92 07/25/24 23:37 76 94 07/25/24 23:35 76 92 07/25/24 23:30 76 92 07/25/24 23:29 73 129/62 07/25/24 23:27 74 93 07/25/24 23:25 73 93 07/25/24 23:20 94 07/25/24 23:20 75 07/25/24 23:20 73 07/25/24 23:15 18 07/25/24 23:15 73 94 07/25/24 23:14 75 128/62 07/25/24 23:13 74 94 07/25/24 23:10 70 96 07/25/24 23:05 73 95 07/25/24 23:00 98.2 F 71 18 127/62 96 07/25/24 22:55 74 96 07/25/24 22:52 80 92 07/25/24 22:50 74 96 07/25/24 22:45 72 96 07/25/24 22:44 72 125/58 L 07/25/24 22:40 72 96 07/25/24 22:35 69 96 07/25/24 22:30 72 96 07/25/24 22:29 74 131/63 07/25/24 22:25 81 98 07/25/24 22:20 71 96 07/25/24 22:15 18 07/25/24 22:15 84 95 07/25/24 22:14 75 136/65 07/25/24 22:11 79 94 07/25/24 22:10 82 94 07/25/24 22:05 77 94 07/25/24 22:00 94 07/25/24 22:00 79 07/25/24 22:00 77 94 07/25/24 21:59 75 139/70 07/25/24 21:55 76 95 07/25/24 21:52 87 94 07/25/24 21:50 76 96 07/25/24 21:45 74 97 07/25/24 21:44 71 139/70 07/25/24 21:40 74 97 07/25/24 21:35 75 96 07/25/24 21:30 78 98 07/25/24 21:29 73 137/68 07/25/24 21:25 71 97 07/25/24 21:20 80 98 07/25/24 21:15 18 07/25/24 21:15 98.2 F 80 18 126/62 95 07/25/24 21:10 76 95 07/25/24 21:09 76 94 07/25/24 21:05 80 98 07/25/24 21:00 76 97 07/25/24 20:59 77 130/64 07/25/24 20:55 75 98 07/25/24 20:50 78 97 07/25/24 20:45 73 97 07/25/24 20:44 78 125/61 07/25/24 20:40 77 99 07/25/24 20:35 74 97 07/25/24 20:30 97 07/25/24 20:30 75 07/25/24 20:30 70 128/60 07/25/24 20:25 76 98 07/25/24 20:20 78 99 07/25/24 20:15 18 07/25/24 20:15 71 98 07/25/24 20:14 71 126/62 07/25/24 20:10 69 99 07/25/24 20:05 76 99 07/25/24 20:00 83 99 07/25/24 19:59 93 H 146/81 H 07/25/24 19:55 77 99 07/25/24 19:50 74 99 07/25/24 19:45 80 99 07/25/24 19:44 78 140/81 07/25/24 19:40 75 98 07/25/24 19:35 79 99 07/25/24 19:30 80 99 07/25/24 19:29 80 138/81 07/25/24 19:25 78 99 07/25/24 19:20 82 100 07/25/24 19:15 97.9 F 18 07/25/24 19:15 18 07/25/24 19:15 97.9 F 87 18 140/83 99 07/25/24 19:10 83 99 07/25/24 19:05 79 99 07/25/24 19:00 77 99 07/25/24 18:59 77 144/75 H 07/25/24 18:55 82 99 07/25/24 18:50 79 98 07/25/24 18:45 73 99 07/25/24 18:44 76 144/79 H 07/25/24 18:40 73 100 07/25/24 18:35 73 100 07/25/24 18:30 76 100 07/25/24 18:29 80 139/78 07/25/24 18:25 77 100 07/25/24 18:20 67 98 07/25/24 18:15 98 07/25/24 18:15 71 07/25/24 18:15 68 134/72 07/25/24 18:10 18 07/25/24 18:10 66 99 07/25/24 18:05 75 99 07/25/24 18:00 71 100 07/25/24 17:59 71 137/76 07/25/24 17:55 73 99 07/25/24 17:50 70 100 07/25/24 17:45 80 100 07/25/24 17:44 71 132/75 07/25/24 17:40 69 99 07/25/24 17:35 73 100 07/25/24 17:30 18 07/25/24 17:30 74 100 07/25/24 17:29 72 128/72 07/25/24 17:25 72 100 07/25/24 17:20 77 98 07/25/24 17:15 72 99 07/25/24 17:14 69 124/76 07/25/24 17:10 78 99 07/25/24 17:05 75 99 07/25/24 17:00 75 99 07/25/24 16:59 67 124/61 07/25/24 16:55 74 100 07/25/24 16:50 71 100 07/25/24 16:45 99 07/25/24 16:45 71 07/25/24 16:45 77 128/63 07/25/24 16:40 70 98 07/25/24 16:35 68 99 07/25/24 16:30 67 99 07/25/24 16:29 18 07/25/24 16:29 65 124/61 07/25/24 16:25 78 100 07/25/24 16:20 74 100 07/25/24 16:15 81 99 07/25/24 16:14 71 121/60 07/25/24 16:10 73 100 07/25/24 16:05 72 100 07/25/24 16:00 82 99 07/25/24 15:58 77 119/58 L 07/25/24 15:55 77 100 07/25/24 15:51 76 113/58 L 07/25/24 15:50 78 100 07/25/24 15:47 78 116/59 L 07/25/24 15:45 83 100 07/25/24 15:43 76 119/59 L 07/25/24 15:40 18 07/25/24 15:40 83 100 07/25/24 15:37 74 118/57 L 07/25/24 15:35 77 100 07/25/24 15:30 80 98 07/25/24 15:27 81 117/57 L 07/25/24 15:25 82 100 07/25/24 15:22 86 125/63 07/25/24 15:20 76 100 07/25/24 15:16 97 H 119/59 L 07/25/24 15:15 95 H 100 07/25/24 15:12 83 117/57 L 07/25/24 15:10 83 100 07/25/24 15:07 86 109/59 L 07/25/24 15:05 91 H 98 07/25/24 15:01 103 H 123/59 L 07/25/24 15:00 108 H 100 07/25/24 14:59 88 120/59 L 07/25/24 14:57 84 117/58 L 07/25/24 14:55 99 07/25/24 14:55 87 07/25/24 14:55 88 118/56 L 07/25/24 14:53 86 121/62 07/25/24 14:51 100 H 121/58 L 07/25/24 14:50 96 H 99 07/25/24 14:49 93 H 120/59 L 07/25/24 14:47 88 122/55 L 07/25/24 14:45 87 124/60 100 07/25/24 14:43 93 H 130/60 07/25/24 14:41 85 127/59 L 07/25/24 14:40 87 99 07/25/24 14:39 83 129/59 L 07/25/24 14:37 81 125/58 L 07/25/24 14:35 97 07/25/24 14:35 86 07/25/24 14:35 83 133/64 07/25/24 14:33 82 141/64 H 07/25/24 14:31 88 162/87 H 07/25/24 14:30 99 07/25/24 14:30 89 07/25/24 14:30 81 158/86 H 07/25/24 14:29 82 176/97 H 07/25/24 14:25 81 98 07/25/24 14:20 82 98 07/25/24 14:15 22 07/25/24 14:15 99 07/25/24 14:15 89 07/25/24 14:15 89 86 L 07/25/24 14:10 85 100 07/25/24 14:07 76 136/76 91 Coding Level of Care Code None Diagnoses 36 weeks gestation of Z3A.36 Pre-eclampsia, severe O14.10 Gestational diabetes mellitus (GDM) affecting , antepartum O24.419
[2024-07-26] MEDS: ACETAMINOPHEN 500 MG TAB PO SCH (02:17)
[2024-07-26] MEDS: CITRIC ACID/SODIUM CITRATE 15 ML UDC PO ONE (02:18)
[2024-07-26] MEDS: ceFAZolin 3000MG 3,000 MG/72.5 ML BAG IV SCH (02:21)
[2024-07-26] MEDS ORDERED: DEXAMETHASONE SOD INJ 4 MG/ML VIAL ONE (02:24)
[2024-07-26] MEDS ORDERED: ONDANSETRON INJ 2 MG/ML 2 ML VIAL ONE (02:24)
[2024-07-26] MEDS ORDERED: OXYTOCIN 10 UNITS/ML VIAL ONE (02:24)
--- NOTE | 2024-07-26 02:24 | Communication Note ---
Date of Service: July 26, 2024 Decision made to proceed with c/s for failure to progress. Epidural in place and working well. [id number]
[2024-07-26] MEDS ORDERED: PHENYLEPHRINE HCL 25 MG/250 ML NSS IV ONE (02:25)
[2024-07-26] MEDS ORDERED: KETOROLAC 30 MG/ML VIAL ONE (02:25)
[2024-07-26] MEDS ORDERED: MoRPHine SULFATE PF 1 MG/ML 10 ML AMP/VIAL ONE (02:25)
[2024-07-26] MEDS: AZITHROMYCIN 500 MG in DEXTROSE 5% 250 ML IV SCH (02:40)
[2024-07-26] MEDS ORDERED: NALOXONE HCL 1 MG in SODIUM CHLORIDE 0.9% 1,000 ML IV PRN (03:14)
[2024-07-26] MEDS ORDERED: MEPERIDINE HCL 25 MG/ML CARP/VIAL IV PRN (03:14)
[2024-07-26] MEDS ORDERED: PROMETHAZINE 6.25 MG/50.25 ML BAG IV PRN (03:14)
[2024-07-26] MEDS ORDERED: DROPERIDOL 5 MG/2 ML VIAL IV PRN (03:14)
[2024-07-26] MEDS ORDERED: diphenhydrAMINE Capsule 25 MG CAP PO PRN ×2 (03:14→21:14)
[2024-07-26] MEDS ORDERED: ePHEDrine sulfate 50 MG/ML AMP IV PRN (03:14)
[2024-07-26] MEDS ORDERED: NALOXONE HCL 0.08 MG in SYRINGE 1.8 ML IV PRN (03:14)
[2024-07-26] MEDS ORDERED: METOCLOPRAMIDE HCL 20 MG in SODIUM CHLORIDE 0.9% 50 ML IV PRN (03:14)
[2024-07-26] MEDS ORDERED: diphenhydrAMINE 50 MG/ML VIAL IV PRN ×2 (03:14→21:14)
[2024-07-26] MEDS ORDERED: HYDROmorphone INJ 0.5 MG/0.5 ML SYR IV PRN ×2 (03:14→21:14)
[2024-07-26] MEDS ORDERED: ONDANSETRON INJ 2 MG/ML 2 ML VIAL IV PRN (03:14)
[2024-07-26] MEDS ORDERED: NALOXONE HCL 0.4 MG/1 ML VIAL/CARP IV PRN (03:14)
[2024-07-26] MEDS ORDERED: DC INTRASPINAL MORPHINE SCH (03:15)
[2024-07-26] MEDS ORDERED: NO NARCOTICS OR SEDATIVES SCH (03:15)
[2024-07-26] MEDS ORDERED: LIDOCAINE 2%/EPINEPHRINE 1:200,000 20 ML PF ONE (03:16)
--- NOTE | 2024-07-26 03:41 | Operative Report ---
Post Operative Report Pre & Post Diagnosis Operation Date: 07/26/24 02:30 <No data on this case meets the specified criteria> Preop Diagnoses: 1. 36+wk iup 2. Preeclampsia with severe features 3. Failed induction Postop Diagnoses: same I identified the patient and participated in the time-out.: Yes Procedure Operation Date: 07/26/24 02:30 <No data on this case meets the specified criteria> Primary Low Transverse Section. Surgeon Patti Donis MD, FACOG Dictaphone Technician rn Quantitative Blood Loss (QBL) 851 Findings Consistent with Post-Op Diagnosis (viable female apgars 9,9. normal uterus tubes and ovaries bilaterally) Fluids 600cc Specimens cord blood Drains scruggs Anesthesia Type Labor Epidural Complications none Disposition Accompanied Patient To Recovery: No Disposition: L&D Indications 29yo at 36wks induction for preeclampsia with severe features. Received cytotec x multiple and then scruggs balloon and pitocin. AROM accomplished with clear fluid. pitocin ran to max level twice with no achieved labor pattern. Options reviewed and c/s planned for failed induction. Description of Procedure The patient was taken to the operating room and identified. After adequate anesthesia was obtained, she was placed in the supine position with a leftward tilt on the operating table and prepped and draped in the usual sterile fashion. A scruggs catheter had already been placed. The knife was used to create a Pfannensteil skin incision that was carried down to the underlying layer of fascia. The fascia was nicked in the midline and this opening was extended laterally using Nguyen scissors. Zenobia clamps were placed on the superior and inferior aspect of the fascial incision tenting it upward and the underlying rectus muscles were dissected off the overlying fascia both sharply and bluntly using Nguyen scissors. The rectus muscles were bluntly in the midline. The peritoneal cavity was bluntly entered into. This opening was stretched. The bladder blade was placed. The vesicouterine peritoneum was elevated and opened up into and the bladder flap was created digitally and bladder blade was replaced. The knife was used to create a hysterotomy and this opening was stretched. The operators hand was placed through the hysterotomy and the bladder blade was removed. The head was elevated and flexed and with fundal pressure the head was delivered. The shoulders and body were rapidly delivered. The cord was clamped and cut and the infant's mouth and nares were bulb suction. The was handed off to the awaiting pediatricians. Cord blood was obtained. The placenta was manually expressed. The uterus was exteriorized and cleared of all clots and debris. Dilute IV Pitocin was begun. The uterine tone was improving. The hysterotomy was closed in a running interlocking fashion using 0 Vicryl followed by a second imbricating layer of 0 Vicryl. The hysterotomy was hemostatic. The pelvis was irrigated. The uterus was returned to the abdomen. The gutters were cleared of all clots and debris. The hysterotomy was reinspected and noted to be hemostatic. The fascia was then closed in running fashion using 0 Vicryl. The subcutaneous fat was copiously irrigated and reapproximated using 2-0 chromic. The skin was closed in a subcuticular fashion using 4-0 monocryl. At this point the procedure was terminated. The patient was transferred to the recovery room in stable condition. All sponge, lap and needle counts are correct x2. I attest to the content of the Intraoperative Record and any orders documented therein. Any exceptions are noted below. OB Procedure Charges 57301
--- NOTE | 2024-07-26 03:55 | Anesthesiology Progress Note ---
Date of Service July 26, 2024 Anesthesia Post Procedure Vital Signs Vital Signs: Temp Pulse Resp BP Pulse Ox 07/26/24 03:51 79 100 07/26/24 03:46 78 116/59 L 98 07/26/24 02:40 85 99 07/26/24 02:35 93 H 96 07/26/24 02:30 78 99 07/26/24 02:25 81 98 07/26/24 02:20 79 98 07/26/24 02:15 82 134/75 98 07/26/24 02:10 78 98 07/26/24 02:05 81 98 07/26/24 02:00 83 98 07/26/24 01:59 92 H 148/75 H 07/26/24 01:55 84 97 07/26/24 01:50 82 94 07/26/24 01:45 80 94 07/26/24 01:44 78 139/66 07/26/24 01:40 78 94 07/26/24 01:35 76 95 07/26/24 01:30 79 94 07/26/24 01:29 77 145/67 H 07/26/24 01:25 81 94 07/26/24 01:20 85 95 07/26/24 01:15 18 07/26/24 01:15 36.8 C 81 93 07/26/24 01:14 79 135/65 07/26/24 01:10 78 93 07/26/24 01:05 79 93 07/26/24 01:00 77 93 07/26/24 00:59 75 138/66 07/26/24 00:55 75 95 07/26/24 00:50 76 94 07/26/24 00:45 77 94 07/26/24 00:44 75 142/68 H 07/26/24 00:40 78 94 07/26/24 00:35 72 96 07/26/24 00:30 76 96 07/26/24 00:29 72 136/70 07/26/24 00:25 78 97 07/26/24 00:20 73 97 07/26/24 00:15 18 07/26/24 00:15 83 96 07/26/24 00:14 73 123/57 L 07/26/24 00:10 81 96 07/26/24 00:05 83 92 07/26/24 00:00 78 94 07/25/24 23:59 80 140/65 07/25/24 23:55 83 94 07/25/24 23:50 77 94 07/25/24 23:45 78 94 07/25/24 23:44 79 131/62 07/25/24 23:40 79 92 07/25/24 23:37 76 94 07/25/24 23:35 76 92 07/25/24 23:30 76 92 07/25/24 23:29 73 129/62 07/25/24 23:27 74 93 07/25/24 23:25 73 93 07/25/24 23:20 94 07/25/24 23:20 75 07/25/24 23:20 73 07/25/24 23:15 18 07/25/24 23:15 73 94 07/25/24 23:14 75 128/62 07/25/24 23:13 74 94 07/25/24 23:10 70 96 07/25/24 23:05 73 95 07/25/24 23:00 36.8 C 71 18 127/62 96 07/25/24 22:55 74 96 07/25/24 22:52 80 92 07/25/24 22:50 74 96 07/25/24 22:45 72 96 07/25/24 22:44 72 125/58 L 07/25/24 22:40 72 96 07/25/24 22:35 69 96 07/25/24 22:30 72 96 07/25/24 22:29 74 131/63 07/25/24 22:25 81 98 07/25/24 22:20 71 96 07/25/24 22:15 18 07/25/24 22:15 84 95 07/25/24 22:14 75 136/65 07/25/24 22:11 79 94 07/25/24 22:10 82 94 07/25/24 22:05 77 94 07/25/24 22:00 94 07/25/24 22:00 79 07/25/24 22:00 77 94 07/25/24 21:59 75 139/70 07/25/24 21:55 76 95 07/25/24 21:52 87 94 07/25/24 21:50 76 96 07/25/24 21:45 74 97 07/25/24 21:44 71 139/70 07/25/24 21:40 74 97 07/25/24 21:35 75 96 07/25/24 21:30 78 98 07/25/24 21:29 73 137/68 07/25/24 21:25 71 97 07/25/24 21:20 80 98 07/25/24 21:15 18 07/25/24 21:15 36.8 C 80 18 126/62 95 07/25/24 21:10 76 95 07/25/24 21:09 76 94 07/25/24 21:05 80 98 07/25/24 21:00 76 97 07/25/24 20:59 77 130/64 07/25/24 20:55 75 98 07/25/24 20:50 78 97 07/25/24 20:45 73 97 07/25/24 20:44 78 125/61 07/25/24 20:40 77 99 07/25/24 20:35 74 97 07/25/24 20:30 97 07/25/24 20:30 75 07/25/24 20:30 70 128/60 07/25/24 20:25 76 98 07/25/24 20:20 78 99 07/25/24 20:15 18 07/25/24 20:15 71 98 07/25/24 20:14 71 126/62 07/25/24 20:10 69 99 07/25/24 20:05 76 99 07/25/24 20:00 83 99 07/25/24 19:59 93 H 146/81 H 07/25/24 19:55 77 99 07/25/24 19:50 74 99 07/25/24 19:45 80 99 07/25/24 19:44 78 140/81 07/25/24 19:40 75 98 07/25/24 19:35 79 99 07/25/24 19:30 80 99 07/25/24 19:29 80 138/81 07/25/24 19:25 78 99 07/25/24 19:20 82 100 07/25/24 19:15 36.6 C 18 07/25/24 19:15 18 07/25/24 19:15 36.6 C 87 18 140/83 99 07/25/24 19:10 83 99 07/25/24 19:05 79 99 07/25/24 19:00 77 99 07/25/24 18:59 77 144/75 H 07/25/24 18:55 82 99 07/25/24 18:50 79 98 07/25/24 18:45 73 99 07/25/24 18:44 76 144/79 H 07/25/24 18:40 73 100 07/25/24 18:35 73 100 07/25/24 18:30 76 100 07/25/24 18:29 80 139/78 07/25/24 18:25 77 100 07/25/24 18:20 67 98 07/25/24 18:15 98 07/25/24 18:15 71 07/25/24 18:15 68 134/72 07/25/24 18:10 18 07/25/24 18:10 66 99 07/25/24 18:05 75 99 07/25/24 18:00 71 100 07/25/24 17:59 71 137/76 07/25/24 17:55 73 99 07/25/24 17:50 70 100 07/25/24 17:45 80 100 07/25/24 17:44 71 132/75 07/25/24 17:40 69 99 07/25/24 17:35 73 100 07/25/24 17:30 18 07/25/24 17:30 74 100 07/25/24 17:29 72 128/72 07/25/24 17:25 72 100 07/25/24 17:20 77 98 07/25/24 17:15 72 99 07/25/24 17:14 69 124/76 07/25/24 17:10 78 99 07/25/24 17:05 75 99 07/25/24 17:00 75 99 07/25/24 16:59 67 124/61 07/25/24 16:55 74 100 07/25/24 16:50 71 100 07/25/24 16:45 99 07/25/24 16:45 71 07/25/24 16:45 77 128/63 07/25/24 16:40 70 98 07/25/24 16:35 68 99 07/25/24 16:30 67 99 07/25/24 16:29 18 07/25/24 16:29 65 124/61 07/25/24 16:25 78 100 07/25/24 16:20 74 100 07/25/24 16:15 81 99 07/25/24 16:14 71 121/60 07/25/24 16:10 73 100 07/25/24 16:05 72 100 07/25/24 16:00 82 99 07/25/24 15:58 77 119/58 L 07/25/24 15:55 77 100 07/25/24 15:51 76 113/58 L 07/25/24 15:50 78 100 07/25/24 15:47 78 116/59 L 07/25/24 15:45 83 100 07/25/24 15:43 76 119/59 L 07/25/24 15:40 18 07/25/24 15:40 83 100 07/25/24 15:37 74 118/57 L 07/25/24 15:35 77 100 07/25/24 15:30 80 98 07/25/24 15:27 81 117/57 L 07/25/24 15:25 82 100 07/25/24 15:22 86 125/63 07/25/24 15:20 76 100 07/25/24 15:16 97 H 119/59 L 07/25/24 15:15 95 H 100 07/25/24 15:12 83 117/57 L 07/25/24 15:10 83 100 07/25/24 15:07 86 109/59 L 07/25/24 15:05 91 H 98 07/25/24 15:01 103 H 123/59 L 07/25/24 15:00 108 H 100 07/25/24 14:59 88 120/59 L 07/25/24 14:57 84 117/58 L 07/25/24 14:55 99 07/25/24 14:55 87 07/25/24 14:55 88 118/56 L 07/25/24 14:53 86 121/62 07/25/24 14:51 100 H 121/58 L 07/25/24 14:50 96 H 99 07/25/24 14:49 93 H 120/59 L 07/25/24 14:47 88 122/55 L 07/25/24 14:45 87 124/60 100 07/25/24 14:43 93 H 130/60 07/25/24 14:41 85 127/59 L 07/25/24 14:40 87 99 07/25/24 14:39 83 129/59 L 07/25/24 14:37 81 125/58 L 07/25/24 14:35 97 07/25/24 14:35 86 07/25/24 14:35 83 133/64 07/25/24 14:33 82 141/64 H 07/25/24 14:31 88 162/87 H 07/25/24 14:30 99 07/25/24 14:30 89 07/25/24 14:30 81 158/86 H 07/25/24 14:29 82 176/97 H 07/25/24 14:25 81 98 07/25/24 14:20 82 98 07/25/24 14:15 22 07/25/24 14:15 99 07/25/24 14:15 89 07/25/24 14:15 89 86 L 07/25/24 14:10 85 100 07/25/24 14:07 76 136/76 91 07/25/24 14:05 88 100 07/25/24 14:00 80 94 07/25/24 13:58 78 93 07/25/24 13:55 78 97 07/25/24 13:50 78 91 07/25/24 13:48 74 92 07/25/24 13:45 73 100 07/25/24 13:40 78 92 07/25/24 13:37 77 131/69 07/25/24 13:35 76 100 07/25/24 13:30 18 07/25/24 13:30 79 99 07/25/24 13:25 80 100 07/25/24 13:20 76 100 07/25/24 13:15 83 100 07/25/24 13:10 83 100 07/25/24 13:08 77 93 07/25/24 13:07 76 129/68 07/25/24 13:05 77 99 07/25/24 13:00 77 97 07/25/24 12:55 79 100 07/25/24 12:50 75 99 07/25/24 12:45 76 97 07/25/24 12:40 77 99 07/25/24 12:37 75 143/77 H 07/25/24 12:35 81 99 07/25/24 12:30 81 99 07/25/24 12:25 79 97 07/25/24 12:20 83 98 07/25/24 12:15 18 07/25/24 12:15 88 99 07/25/24 12:10 84 99 07/25/24 12:07 83 140/76 07/25/24 12:05 88 99 07/25/24 12:00 86 99 07/25/24 11:55 107 H 100 07/25/24 11:50 94 H 100 07/25/24 11:45 82 100 07/25/24 11:40 102 H 100 07/25/24 11:39 90 155/83 H 07/25/24 11:35 70 99 07/25/24 11:30 70 100 07/25/24 11:25 86 100 07/25/24 11:20 72 100 07/25/24 11:15 76 100 07/25/24 11:10 76 100 07/25/24 11:07 18 07/25/24 11:07 36.7 C 70 18 132/70 100 07/25/24 11:05 75 100 07/25/24 11:00 72 100 07/25/24 10:55 77 100 07/25/24 10:50 83 96 07/25/24 10:48 78 144/71 H 90 07/25/24 10:45 100 07/25/24 10:45 83 07/25/24 10:45 83 157/89 H 07/25/24 10:40 88 99 07/25/24 10:38 83 170/87 H 07/25/24 10:36 16 07/25/24 10:35 82 18 98 07/25/24 10:30 80 97 07/25/24 10:25 82 96 07/25/24 10:20 79 97 07/25/24 10:15 82 98 07/25/24 10:10 82 100 07/25/24 10:07 81 156/85 H 07/25/24 10:05 81 97 07/25/24 10:00 88 99 07/25/24 09:55 81 96 07/25/24 09:50 79 97 07/25/24 09:45 77 98 07/25/24 09:40 75 97 07/25/24 09:37 80 128/79 07/25/24 09:35 77 97 07/25/24 09:30 77 97 07/25/24 09:25 75 98 07/25/24 09:20 80 99 07/25/24 09:15 18 07/25/24 09:15 75 98 07/25/24 09:12 78 92 07/25/24 09:10 80 97 07/25/24 09:08 75 139/83 07/25/24 09:05 84 98 07/25/24 09:00 80 98 07/25/24 08:56 84 94 07/25/24 08:55 82 98 07/25/24 08:50 83 99 07/25/24 08:45 84 97 07/25/24 08:40 89 98 07/25/24 08:37 93 H 147/94 H 07/25/24 08:35 96 H 97 07/25/24 08:30 18 07/25/24 08:30 86 98 07/25/24 08:27 83 93 07/25/24 08:25 86 98 07/25/24 08:20 79 98 07/25/24 08:15 74 99 07/25/24 08:10 78 98 07/25/24 08:07 86 158/86 H 94 07/25/24 08:05 83 98 07/25/24 08:00 80 99 07/25/24 07:55 80 98 07/25/24 07:50 81 98 07/25/24 07:45 82 97 07/25/24 07:40 80 99 07/25/24 07:37 77 141/80 H 07/25/24 07:35 81 96 07/25/24 07:30 74 99 07/25/24 07:25 81 100 07/25/24 07:20 80 98 07/25/24 07:19 93 H 93 07/25/24 07:17 18 07/25/24 07:15 80 99 07/25/24 07:10 82 98 07/25/24 07:07 36.6 C 72 18 136/76 98 07/25/24 07:05 80 97 07/25/24 07:00 71 97 07/25/24 06:55 76 99 07/25/24 06:50 71 98 07/25/24 06:45 81 98 07/25/24 06:40 71 99 07/25/24 06:35 68 99 07/25/24 06:30 82 99 07/25/24 06:25 75 96 07/25/24 06:20 72 98 07/25/24 06:15 77 98 07/25/24 06:11 70 144/83 H 07/25/24 06:10 70 99 07/25/24 06:05 77 97 07/25/24 06:01 16 07/25/24 06:01 36.7 C 16 07/25/24 06:00 16 07/25/24 06:00 77 99 07/25/24 05:55 73 99 07/25/24 05:50 68 98 07/25/24 05:45 71 98 07/25/24 05:40 79 98 07/25/24 05:37 64 134/77 07/25/24 05:35 80 98 07/25/24 05:30 66 99 07/25/24 05:25 72 98 07/25/24 05:20 69 99 07/25/24 05:15 73 99 07/25/24 05:10 70 99 07/25/24 05:07 67 133/67 07/25/24 05:05 70 98 07/25/24 05:00 16 07/25/24 05:00 75 97 07/25/24 04:55 73 97 07/25/24 04:50 65 98 07/25/24 04:45 70 99 07/25/24 04:40 68 98 07/25/24 04:37 72 131/74 07/25/24 04:35 70 99 07/25/24 04:30 68 98 07/25/24 04:25 69 98 07/25/24 04:20 66 98 07/25/24 04:15 65 98 07/25/24 04:10 68 99 07/25/24 04:07 67 137/79 07/25/24 04:05 67 99 07/25/24 04:00 16 07/25/24 04:00 64 99 Pain Intensity Lower Medial Back: Pain Intensity: 3 Transfer of Care Handoff Completed per policy Notes Mental Status: alert / awake / arousable Patient Amnestic to Procedure: Yes Nausea / Vomiting: adequately controlled Pain: adequately controlled Airway Patency, RR, SpO2: stable & adequate BP & HR: stable & adequate Hydration State: stable & adequate Neuraxial Anesthesia: was administered and sensory block is resolving Anesthetic Complications: no major complications apparent and Pt Satisfied with anesthetic care
--- NOTE | 2024-07-26 03:55 | Anesthesia Procedure Note ---
Date of Service July 26, 2024 Anesthesia Post Epidural Note Vital Signs Vital Signs: Temp Pulse Resp BP Pulse Ox O2 Del Method 36.8 C 79 18 116/59 L 100 Room Air 07/26/24 01:15 07/26/24 03:51 07/26/24 01:15 07/26/24 03:46 07/26/24 03:51 07/24/24 20:00 Pain Intensity Lower Medial Back: Pain Intensity: 3 Notes Mental Status: alert / awake / arousable and participated in evaluation Nausea / Vomiting: adequately controlled Pain: adequately controlled Airway Patency, RR, SpO2: stable & adequate BP & HR: stable & adequate Hydration State: stable & adequate Neuraxial Anesthesia: was administered and sensory block is resolving Anesthetic Complications: no major complications apparent Epidural: Removed without complications and With tip intact
[2024-07-26] MEDS ORDERED: CALCIUM CARBONATE 500 MG CHEWABLE TAB PO PRN (04:07)
[2024-07-26] MEDS ORDERED: HYDROCORTISONE ACETATE 25 MG SUPP PR PRN (04:07)
[2024-07-26] MEDS ORDERED: BENZOCAINE 20% SPRY 85 APPLN/85 GM CAN EXT PRN (04:07)
[2024-07-26] MEDS ORDERED: MAGNESIUM HYDROXIDE SUSP 30 ML UDC PO PRN (04:07)
[2024-07-26] MEDS ORDERED: SENNA 8.6 MG TAB PO PRN (04:07)
[2024-07-26] MEDS: OXYTOCIN 20 UNITS/1002ML LR IV ONE (04:35)
[2024-07-26] MEDS: DIPHTHER/TETAN/PERTUS Vaccine (Tdap, Adol/Adult) 0.5mL IM ONE (05:55)
[2024-07-26] MEDS: MoRPHine SULFATE PF 1 MG/ML 10 ML AMP/VIAL EPI ONE (05:55)
[2024-07-26] MEDS: MEASLES, MUMPS & RUBELLA VIRUS VACCINE (MMR) 0.5ML VIAL SQ ONE (05:56)
[2024-07-26] MEDS: OXYTOCIN 20 UNITS/LR 1,002 ML IV SCH (05:56)
[2024-07-26] MEDS: LACTATED RINGER'S 1,000 ML IV SCH (05:56)
[2024-07-26] MEDS ORDERED: SODIUM CHLORIDE 0.9% 50 ML IV PRN (08:05)
[2024-07-26] MEDS ORDERED: SODIUM CHLORIDE 0.9% 100 ML IV PRN (08:05)
[2024-07-26] MEDS: ACETAMINOPHEN 325 MG TAB PO SCH (08:34)
[2024-07-26] MEDS: SIMETHICONE 80 MG CHEW PO SCH (08:34)
[2024-07-26] MEDS: FERROUS SULFATE 325 MG TAB PO SCH (08:34)
[2024-07-26] MEDS: PRENATAL VITAMIN 1 TAB PO SCH (08:34)
[2024-07-26] MEDS: DOCUSATE SODIUM 100 MG CAP PO SCH (08:34)
[2024-07-26] MEDS: NALBUPHINE HCL INJ 10 MG/ML AMP IV PRN (08:35)
[2024-07-26] MEDS: KETOROLAC 30 MG/ML VIAL IV SCH (08:35)
[2024-07-26] MEDS ORDERED: PROMETHAZINE 12.5 MG/50.5 ML BAG IV PRN (21:14)
[2024-07-27] MEDS: NIFEdipine 10 MG CAP PO STA ×2 (03:25→03:31)
[2024-07-27] MEDS ORDERED: KETOROLAC 30 MG/ML VIAL IV PRN (03:44)
[2024-07-27 05:57] LABS: Basophils # (auto) 0.01 K/uL (0.00-0.20); Basophils % (auto) 0.1 %; Eosinophils # (auto) 0.01 K/uL (0.00-0.50); Eosinophils % (auto) 0.1 %; Hematocrit (blood only) 28.2 % (37.0-47.0); Hemoglobin 9.3 g/dl (12.0-16.0); Immature Granulocytes # (auto) 0.12 K/uL (0.01-0.20); Immature Granulocytes % (auto) 0.9 %; Lymphocytes # (auto) 2.14 K/uL (1.20-3.40); Lymphocytes % (auto) 16.5 %; Mean Corpuscular Hemoglobin 27.2 pg (25.0-34.0); Mean Corpuscular Volume 82.5 fL (80.0-100.0); Mean Platelet Volume 10.9 fL (9.4-12.4); Monocytes # (auto) 0.54 K/uL (0.11-0.59); Monocytes % (auto) 4.2 %; Neutrophils # (auto) 10.18 K/uL (1.40-6.50); Neutrophils % (auto) 78.2 %; Platelet Count 283 K/uL (130-400); RDW Standard Deviation 41.3 fL (36.4-46.3); Red Blood Count 3.42 M/uL (4.20-5.40)
--- NOTE | 2024-07-27 07:01 | Obstetrical Progress Note ---
Date of Service July 27, 2024 Assessment & Plan (1) care and examination: (2) Pre-eclampsia, severe: Plan stable, bps improved after nifedipine, has xl dose starting at 9am. routine care. . rhpos, ri. Subjective Ambulation: ambulating normally Voiding: no voiding problems Passing Gas:: Yes Diet Tolerance:: regular diet Lochia:: Small Feeding Type:: breast feeding no pain issues, no gonzalez or visual change or ruq pain Constitutional: + as per Subjective / HPI Physical Exam Constitutional WD/WN, vitals as above Respiratory normal respiratory effort, lungs clear to auscultation Cardiovascular Rate/Rhythm: regular rate and regular rhythm Gastrointestinal (Abdomen) Inspection/Auscultation: abdomen normal to inspection and + abdominal surgical incision (c/d/i) Percussion/Palpation: abdomen soft Fundus firm 2cm down Musculoskeletal nt calves no edema Neurologic grossly normal Psychiatric A+Ox3, euthymic affect Results & Data Vital Signs (Past 12 Hours) Vital Signs Temp Pulse Pulse Resp BP BP Pulse Ox 07/27/24 05:15 97.7 F 74 18 118/72 95 07/27/24 04:39 69 121/63 07/27/24 04:24 69 117/59 L 07/27/24 04:09 69 119/62 07/27/24 03:44 64 98 07/27/24 03:40 18 98 07/27/24 03:40 98.2 F 18 07/27/24 03:40 18 07/27/24 03:39 60 131/79 99 07/27/24 03:34 55 L 100 07/27/24 03:29 59 L 99 07/27/24 03:24 100 07/27/24 03:24 63 07/27/24 03:24 59 L 128/77 07/27/24 03:19 56 L 100 07/27/24 03:15 18 07/27/24 03:14 57 L 100 07/27/24 03:09 67 150/86 H 99 07/27/24 03:04 57 L 98 07/27/24 02:59 58 L 98 07/27/24 02:54 98 07/27/24 02:54 69 07/27/24 02:54 58 L 158/91 H 07/27/24 02:49 62 98 07/27/24 02:46 60 161/85 H 07/27/24 02:44 64 96 07/27/24 02:39 59 L 153/80 H 97 07/27/24 02:34 60 97 07/27/24 02:29 58 L 96 07/27/24 02:24 64 96 07/27/24 02:23 55 L 168/79 H 07/27/24 02:22 61 170/73 H 07/27/24 02:19 77 96 07/27/24 02:15 18 07/27/24 02:14 54 L 93 07/27/24 02:09 54 L 94 07/27/24 02:04 55 L 95 07/27/24 01:59 55 L 94 07/27/24 01:54 53 L 94 07/27/24 01:52 51 L 130/76 07/27/24 01:49 53 L 95 07/27/24 01:44 53 L 95 07/27/24 01:39 54 L 94 07/27/24 01:34 55 L 94 07/27/24 01:30 63 85 L 07/27/24 01:29 56 L 95 07/27/24 01:25 63 86 L 07/27/24 01:24 56 L 95 07/27/24 01:22 55 L 147/71 H 07/27/24 01:19 58 L 95 07/27/24 01:15 18 07/27/24 01:14 93 07/27/24 01:14 65 07/27/24 01:14 62 85 L 07/27/24 01:09 96 07/27/24 01:09 61 07/27/24 01:09 68 86 L 07/27/24 01:04 57 L 95 07/27/24 00:59 55 L 96 07/27/24 00:54 55 L 96 07/27/24 00:52 56 L 122/72 07/27/24 00:49 57 L 96 07/27/24 00:44 57 L 95 07/27/24 00:39 56 L 94 07/27/24 00:34 58 L 95 07/27/24 00:29 57 L 95 07/27/24 00:24 58 L 95 07/27/24 00:22 59 L 131/74 07/27/24 00:19 58 L 94 07/27/24 00:15 18 07/27/24 00:14 59 L 94 07/27/24 00:09 59 L 94 07/27/24 00:04 58 L 93 07/26/24 23:59 60 93 07/26/24 23:54 60 94 07/26/24 23:52 59 L 124/72 07/26/24 23:49 60 94 07/26/24 23:44 60 94 07/26/24 23:39 60 95 07/26/24 23:34 64 96 07/26/24 23:29 68 95 07/26/24 23:24 68 94 07/26/24 23:22 63 135/76 07/26/24 23:19 62 96 07/26/24 23:15 18 97 07/26/24 23:15 97.9 F 18 07/26/24 23:15 18 07/26/24 23:14 59 L 96 07/26/24 23:09 62 97 07/26/24 23:04 67 97 07/26/24 22:59 75 100 07/26/24 22:54 65 98 07/26/24 22:52 60 134/77 07/26/24 22:49 61 97 07/26/24 22:44 60 98 07/26/24 22:39 62 98 07/26/24 22:34 61 97 07/26/24 22:29 66 99 07/26/24 22:24 67 99 07/26/24 22:22 66 122/63 07/26/24 22:19 65 98 07/26/24 22:15 18 07/26/24 22:14 60 98 07/26/24 22:09 66 97 07/26/24 22:04 86 98 07/26/24 21:59 63 96 07/26/24 21:54 63 98 07/26/24 21:52 64 134/76 07/26/24 21:49 62 99 07/26/24 21:44 62 99 07/26/24 21:39 66 97 07/26/24 21:34 62 98 07/26/24 21:29 67 98 07/26/24 21:24 62 98 07/26/24 21:22 61 126/70 07/26/24 21:19 65 97 07/26/24 21:15 18 98 07/26/24 21:15 18 07/26/24 21:14 67 98 07/26/24 21:09 64 97 07/26/24 21:04 65 97 07/26/24 20:59 66 97 07/26/24 20:57 60 93 07/26/24 20:54 60 96 07/26/24 20:52 58 L 120/65 07/26/24 20:51 61 94 07/26/24 20:49 59 L 96 07/26/24 20:46 61 94 07/26/24 20:44 61 96 07/26/24 20:39 61 98 07/26/24 20:34 64 98 07/26/24 20:33 60 94 07/26/24 20:29 64 96 07/26/24 20:24 60 96 07/26/24 20:22 58 L 136/75 07/26/24 20:19 60 96 07/26/24 20:15 18 98 07/26/24 20:15 18 07/26/24 20:14 57 L 98 07/26/24 20:09 62 98 07/26/24 20:04 66 99 07/26/24 19:59 60 99 07/26/24 19:54 66 99 07/26/24 19:52 60 129/76 07/26/24 19:49 66 98 07/26/24 19:44 58 L 97 07/26/24 19:39 64 98 07/26/24 19:34 60 98 07/26/24 19:29 61 99 07/26/24 19:24 74 97 07/26/24 19:21 63 136/80 07/26/24 19:19 60 98 07/26/24 19:15 18 97 07/26/24 19:15 97.9 F 18 07/26/24 19:15 18 07/26/24 19:14 64 98 07/26/24 19:09 66 97 07/26/24 19:04 67 98 O2 Del Method 07/27/24 05:15 Room Air 07/27/24 04:39 07/27/24 04:24 07/27/24 04:09 07/27/24 03:44 07/27/24 03:40 07/27/24 03:40 07/27/24 03:40 07/27/24 03:39 07/27/24 03:34 07/27/24 03:29 07/27/24 03:24 07/27/24 03:24 07/27/24 03:24 07/27/24 03:19 07/27/24 03:15 07/27/24 03:14 07/27/24 03:09 07/27/24 03:04 07/27/24 02:59 07/27/24 02:54 07/27/24 02:54 07/27/24 02:54 07/27/24 02:49 07/27/24 02:46 07/27/24 02:44 07/27/24 02:39 07/27/24 02:34 07/27/24 02:29 07/27/24 02:24 07/27/24 02:23 07/27/24 02:22 07/27/24 02:19 07/27/24 02:15 07/27/24 02:14 07/27/24 02:09 07/27/24 02:04 07/27/24 01:59 07/27/24 01:54 07/27/24 01:52 07/27/24 01:49 07/27/24 01:44 07/27/24 01:39 07/27/24 01:34 07/27/24 01:30 07/27/24 01:29 07/27/24 01:25 07/27/24 01:24 07/27/24 01:22 07/27/24 01:19 07/27/24 01:15 07/27/24 01:14 07/27/24 01:14 07/27/24 01:14 07/27/24 01:07/27/24 01:07/27/24 01:07/27/24 01:04 07/27/24 00:59 07/27/24 00:54 07/27/24 00:52 07/27/24 00:49 07/27/24 00:44 07/27/24 00:39 07/27/24 00:34 07/27/24 00:29 07/27/24 00:24 07/27/24 00:22 07/27/24 00:19 07/27/24 00:15 07/27/24 00:14 07/27/24 00:07/27/24 00:04 07/26/24 23:59 07/26/24 23:54 07/26/24 23:52 07/26/24 23:49 07/26/24 23:44 07/26/24 23:39 07/26/24 23:34 07/26/24 23:29 07/26/24 23:24 07/26/24 23:22 07/26/24 23:19 07/26/24 23:15 07/26/24 23:15 07/26/24 23:15 07/26/24 23:14 07/26/24 23:09 07/26/24 23:04 07/26/24 22:59 07/26/24 22:54 07/26/24 22:52 07/26/24 22:49 07/26/24 22:44 07/26/24 22:39 07/26/24 22:34 07/26/24 22:29 07/26/24 22:24 07/26/24 22:22 07/26/24 22:19 07/26/24 22:15 07/26/24 22:14 07/26/24 22:09 07/26/24 22:04 07/26/24 21:59 07/26/24 21:54 07/26/24 21:52 07/26/24 21:49 07/26/24 21:44 07/26/24 21:39 07/26/24 21:34 07/26/24 21:29 07/26/24 21:24 07/26/24 21:22 07/26/24 21:19 07/26/24 21:15 07/26/24 21:15 07/26/24 21:14 07/26/24 21:09 07/26/24 21:04 07/26/24 20:59 07/26/24 20:57 07/26/24 20:54 07/26/24 20:52 07/26/24 20:51 07/26/24 20:49 07/26/24 20:46 07/26/24 20:44 07/26/24 20:39 07/26/24 20:34 07/26/24 20:33 07/26/24 20:29 07/26/24 20:24 07/26/24 20:22 07/26/24 20:19 07/26/24 20:15 07/26/24 20:15 07/26/24 20:14 07/26/24 20:09 07/26/24 20:04 07/26/24 19:59 07/26/24 19:54 07/26/24 19:52 07/26/24 19:49 07/26/24 19:44 07/26/24 19:39 07/26/24 19:34 07/26/24 19:29 07/26/24 19:24 07/26/24 19:21 07/26/24 19:19 07/26/24 19:15 07/26/24 19:15 07/26/24 19:15 07/26/24 19:14 07/26/24 19:09 07/26/24 19:04
[2024-07-27] MEDS: IBUPROFEN 600 MG TAB PO SCH (08:48)
[2024-07-27] MEDS: NIFEdipine EXTENDED REL 30 MG TABCR PO SCH (09:43)
[2024-07-27] MEDS: bisacodyL 5 MG TABEC PO SCH (20:28)
[2024-07-28] MEDS: oxyCODONE HCL IR 5 MG TAB (IMMEDIATE RELEASE) PO PRN (02:52)
[2024-07-28] MEDS ORDERED: bisacodyL 10 MG SUPP PR PRN (03:44)
--- NOTE | 2024-07-28 06:14 | Obstetrical Progress Note ---
Date of Service <Caryl Guerra MD - Last Filed: 07/28/24 07:09> July 28, 2024 Assessment & Plan <Caryl Guerra MD - Last Filed: 07/28/24 07:09> (1) care and examination: Plan POD#2: Stable, continue routine care, OOB and ambulation, diet as tolerated Rh+, gbs -, ri (MMR /10) vitals, H&H noted plan for d/c tomorrow <Queta Her DO - Last Filed: 07/28/24 07:25> (1) care and examination: Subjective <Caryl Guerra MD - Last Filed: 07/28/24 07:09> Ambulation: ambulating normally Voiding: no voiding problems Passing Gas:: Yes Diet Tolerance:: regular diet Lochia:: Small Feeding Type:: breast feeding Kimber is a 29 y/o female who is POD#2 following delivery at 36 5/7 weeks, after was complicated by GDM, pre-eclampsia w severe features, and failed IOL. Skin hurts to touch; tylenol, motrin, oxy ~2:30. Otherwise, just some discomfort when bladder full Is tolerating meals, ambulating, and voiding w/o issue No BM but is passing gas Tried nursing but is pumping Tearful when discussing baby, who is struggling w resp distress. Has gone to see baby Constitutional: no fever, no chills or no sweats Respiratory: no dyspnea Cardiovascular: no chest pain, no palpitations or no calf pain Breast: no breast pain Genitourinary (female): no dysuria Neurologic: no headache(s) no changes in vision, no headaches Physical Exam <Caryl Guerra MD - Last Filed: 07/28/24 07:09> General: Alert, oriented. No acute distress. Cardiac: Regular rate and rhythm, no murmurs, rubs, or gallops. Respiratory: Clear to auscultation bilaterally, no wheezes/rales/rhonchi. No increased work of breathing. Symmetrical chest rise. No respiratory distress. Abdomen: Soft, nontender, nondistended. Bowel sounds present. Uterus: Uterine fundus firm, nontender. Surgical scar clean and healing very well, rather faint already. Lower extremities: No lower extremity edema or swelling. No deep calf pain. Results & Data <Caryl Guerra MD - Last Filed: 07/28/24 07:09> Vital Signs (Past 12 Hours) Vital Signs Temp Pulse Pulse Resp BP BP Pulse Ox 07/28/24 02:35 36.6 C 79 18 146/83 H 100 07/27/24 23:30 71 128/74 07/27/24 20:30 36.5 C 76 18 148/88 H 100 O2 Del Method 07/28/24 02:35 Room Air 07/27/24 23:30 07/27/24 20:30 Room Air Laboratory Results 07/28/24 05:44 07/24/24 16:16 Supervising Physician <Queta Her DO - Last Filed: 07/28/24 07:25> Co-Signing Physician Notes Resident Physician Supervision Note: I interviewed and examined the patient. Discussed with Dr. Her and agree with findings and plan as documented in the note. Any exceptions or clarifications are listed here: POD2 doing well. Desires to stay until POD3. Routine postop care. Documented By: Queta Her DO Resident Activity Tracking <Queta Her DO - Last Filed: 07/28/24 07:25> Resident Involvement: Resident Care Provided Care Provided: OB Delivery
[2024-07-28 06:25] LABS: Hematocrit (blood only) 25.1 % (37.0-47.0); Hemoglobin 8.3 g/dl (12.0-16.0)
[2024-07-28 08:25] VITALS: TEMP 97.5; O2SAT 98
--- NOTE | 2024-07-28 13:22 | Obstetrical Progress Note ---
Date of Service July 28, 2024 Assessment & Plan (1) Pre-eclampsia, severe: Plan Discussed situation. I feel the pressure is primarily elevated because of anxiety. However, cannot say that for sure. Pressures have not been this elevated at all pp. Plan to treat with dose of labetolol and check labs. monitor for the next few hours. If labs normal and blood pressures improve, consider d/c later today. However, patient understands that I cannot d/c with documentation of this pressure. She expresses understanding. Admission and Anticipated Discharge Date Admission Date: July 24, 2024 Subjective Baby is being transferred for respiratory issues. Patient would like to be d/c. INduced for pet with severe features, s/p Mag. Pressures have been reasonable on pp Procardia started yest am. she has had her dose today. She is asymptomatic --no gonzalez, vision changes, ruq pain, n/v. Meeting criteria for d/c. Pressures this am 140s/70-80s. Patient is very anxious and tearful. Physical Exam Physical Exam: bp --initially >200/100, repeat 170/80 Constitutional: WD/WN, vitals as above Cardiovascular: Extremities: + edema (tr-+1); no calf tenderness Gastrointestinal (Abdomen): soft, no ruq tenderness Neurologic: patellar DTR's 2+ bilat, sensation intact Psychiatric: A+Ox3, euthymic affect (anxious , tearful) Results & Data Vital Signs (Past 12 Hours) Vital Signs Temp Pulse Pulse Resp BP Pulse Ox O2 Del Method 07/28/24 08:05 36.4 C L 81 18 145/79 H 98 Room Air 07/28/24 02:35 36.6 C 79 18 146/83 H 100 Room Air PG Care Time/CCT Total # of Minutes Spent Total Time Spent with Patient: Total time spent is greater than 50% in coordination of care (as documented) at patient's floor/unit and/or counseling patient: Coding Level of Care Code None Diagnoses Pre-eclampsia, severe O14.10
[2024-07-28] MEDS: LABETALOL HCL 100 MG TAB PO ONE (13:31)
[2024-07-28 14:58] LABS: Hematocrit (blood only) 25.4 % (37.0-47.0); Hemoglobin 8.2 g/dl (12.0-16.0); Mean Corpuscular Hemoglobin 27.1 pg (25.0-34.0); Mean Corpuscular Hgb Conc 32.3 g/dL (32.0-36.0); Mean Corpuscular Volume 83.8 fL (80.0-100.0); Mean Platelet Volume 10.4 fL (9.4-12.4); Nucleated RBC # (auto) 0.02 K/uL (0.00-0.12); Nucleated RBC % (auto) 0.2 %; Platelet Count 254 K/uL (130-400); RDW Coefficient of Variation 14.7 % (11.5-14.5); RDW Standard Deviation 44.6 fL (36.4-46.3); Red Blood Count 3.03 M/uL (4.20-5.40); White Blood Count 10.83 K/ul (4.8-10.8)
[2024-07-28 15:16] LABS: Albumin Globulin Ratio 1.1 (0.9-2); Albumin Level 3.1 gm/dl (3.4-5.0); BUN Creatinine Ratio 22.2 (10-20); Bilirubin,Total 0.2 mg/dl (0.2-1.0); Creatinine Clr Calc Pharmacy 139.7 ml/min; Globulin 2.7 gm/dl (2.5-4.0); Potassium 4.4 mmol/L (3.5-5.1); Total Protein 5.8 gm/dl (6.0-8.3)
[2024-07-28 16:36] VITALS: PULSE 89
[2024-07-28] MEDS: IBUPROFEN 600 MG TAB PO PRN (16:37)
[2024-07-28] MEDS: ACETAMINOPHEN 325 MG TAB PO PRN (16:37)
[2024-07-28 18:25] VITALS: BP 144/76
--- NOTE | 2024-07-30 13:37 | Discharge Summary ---
Date of Service Day of admission: July 24, 2024 Day of discharge: July 28, 2024 Admission HPI Per Admitting Provider 29 yo G1 at 36 3/7 wga presented for eval due to CAMARGO in the setting of elevated BPs. Was seen yesterday for morris at which point mildly elevated BPs were noted but asymptomatic. Labs wre obtained which were normal however UP:C 1.0. diagnosed this afternoon w/ pre-eclampsia w/o SF after BP check today with persistent mild range BP. During visit, she noted return of CAMARGO so sent to L&D for further eval. On L&D, BPs remain mild range, labs were wnl. Has had HAs on and off and last few weeks but they would always resolve with tylenol. She was given tylenol and reglan on L&D however persisted. 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 She was maintained on 24hr of pp magnesium. She did not require treatment for her blood pressures except on day of discharge. Received procardia and then sent home on daily procardia with plan for 2-3 day bp check. BP elevation thought to be due to anxiety. On her postoperative day #2 she was tolerating a regular diet, voiding spontaneously, ambulating without problem and was using oral meds for adequate pain control. Her postoperative hemoglobin was 8.2. She was given written and verbal discharge instructions and told to followup in office at 6wks and bp check in 2-3days. She was given appropriate pain medicine prescriptions. Coding Level of Care Code None Diagnoses 36 weeks gestation of Z3A.36 Pre-eclampsia, severe O14.10 Gestational diabetes mellitus (GDM) affecting , antepartum O24.419 care and examination Z39.2
== END 2024-07-28 19:25 | disposition home or self-care (01) | DRG 788 ==
LOC: OPB 14:54 → 4S1 15:11 → 4E2 07-27 05:04
DX: Z3A.36 36 weeks gestation of pregnancy; O62.1 Secondary uterine inertia; Z80.41 Family history of malignant neoplasm of ovary; O14.14 Severe pre-eclampsia complicating childbirth; O61.0 Failed medical induction of labor; Z83.3 Family history of diabetes mellitus; Z37.0 Single live birth; O24.420 Gestational diabetes mellitus in childbirth, diet controlled